=== PATIENT | female | born 1950 | race African-American/Black ===

== ENCOUNTER 2016-10-30 09:54 | Emergency (ER) | payer OTHER ==
[2016-10-30 10:22] VITALS: TEMP 97.6; BMI 29.3
[2016-10-30 10:45] LABS: BASOPHIL 1.1 % (0-2.0); EOSINOPHIL 1.5 % (0-4.5); MCH 31.3 pg (25.7-33.7); MCHC 32.5 g/dl (32.0-36.0); MEAN CELL VOLUME 96.2 fl (80-96); MEAN PLT VOLUME 8.3 fl (7.5-11.1); NEUTROPHILS 71.7 % (42.8-82.8); PLATELET COUNT 253 K/MM3 (134-434); RDW 15.8 % (11.6-15.6); WHITE BLOOD COUNT 6.8 K/mm3 (4.0-10.0)
[2016-10-30 11:08] LABS: ALBUMIN 3.7 g/dl (3.4-5.0); BILIRUBIN,TOTAL 0.4 mg/dL (0.2-1.0); COCKROFT - GAULT 11.05; CREATININE 6.1 mg/dL (0.55-1.02); MAGNESIUM 1.9 mg/dL (1.8-2.4); PHOSPHOROUS 6.5 mg/dL (2.5-4.9); TOT PROT 6.7 g/dl (6.4-8.2)
--- NOTE | 2016-10-30 11:10 | PDOC ---
History of Present Illness - General History Source: Patient Exam Limitations: No Limitations - History of Present Illness Initial Comments: 10/30/16 11:40 The patient is a 66 year old female brought via EMS, with a significant past medical history of asthma, COPD (on home O2), diabetes (neuropathy), HTN, dialysis (, , ), renal failure and chronic lower back pain, who presents to the emergency department with elevated blood pressure. She states that she has not had her medications for the past 2-3 weeks due to some complications with delivery and with her daughter picking up the medication. Pt sates when she was watching tv this morning, she felt brief episode of chest pain when someone on the movie she was watching was shot. It lasted for a few seconds and resolved. She states that she has been experiencing shortness of breath, which is mild and chronic in nature, no increased andres. She states that her daughter called the ambulance without her knowledge and was brought in after EMS noted her blood pressure to be 220/100. On presentation the patients right upper extremity is swollen compared to her left, which she notes has been swollen for the past couple of weeks. The patients last dialysis was 2 days ago. The patient denies headache and dizziness. Denies fever, chills, nausea, vomit, diarrhea and constipation. Denies dysuria, frequency, urgency and hematuria. Allergies: None Past surgical history: Cholecystectomy, right upper extremity fistula Social history: Cigarette use (10 daily). Alcohol use. No drug use reported PMD - Dr. Siva Gillis [facility] - Dr. Montes De Oca [facility] - Dr. Angelo Rodriguez <Dustin Lomeli - Last Filed: 10/30/16 15:48> <Pantera Tejeda - Last Filed: 10/30/16 17:06> - General Chief Complaint: Chest Pain Stated Complaint: Blood Pressure Problem Time Seen by Provider: 10/30/16 10:06 Past History <Dustin Lomeli - Last Filed: 10/30/16 15:48> - Past Medical History Asthma: Yes Cardiac Disorders: Yes (cardiac cath. Cardiac and respiratory arrest in 2013.) CVA: Yes (no residual) COPD: Yes Diabetes: Yes (neuropathy) Dialysis: Yes (,,) Disorders: No HTN: Yes Hypercholesterolemia: Yes Liver Disease: No Thyroid Disease: No - Surgical History Abdominal Surgery: No Appendectomy: No Cardiac Surgery: No (cardiac cath) Cholecystectomy: Yes Lung Surgery: No Neurologic Surgery: No Orthopedic Surgery: No - Psycho/Social/Smoking Cessation Hx Anxiety: No Suicidal Ideation: No Smoking History: Current every day smoker Have you smoked in the past 12 months: Yes Number of Cigarettes Smoked Daily: 5 Information on smoking cessation initiated: Yes 'Breaking Loose' booklet given: 10/30/16 Hx Alcohol Use: Yes (STOPPED 7 YRS AGO) Drug/Substance Use Hx: No Substance Use Type: Marijuana Hx Substance Use Treatment: No <Pantera Tejeda - Last Filed: 10/30/16 17:06> - Past Medical History Allergies/Adverse Reactions: Allergies Allergy/AdvReac Type Severity Reaction Status Date / Time No Known Allergies Allergy Verified 10/30/16 10:16 Home Medications: Ambulatory Orders Albuterol 0.083% Nebulizer Missy [Ventolin 0.083%] 1 neb NEB Q4H PRN 06/12/14 Hydralazine HCl 50 mg PO Q8H 06/12/14 Labetalol HCl [Normodyne -] 300 mg PO TID 06/12/14 Amlodipine Besylate 10 mg PO DAILY 10/30/16 Ergocalciferol [Drisdol -] 50,000 unit PO Q7D@1000 10/30/16 Furosemide [Lasix -] 40 mg PO DAILY 10/30/16 Labetalol HCl [Normodyne -] 200 mg PO BID 10/30/16 Metolazone 5 mg PO DAILY 10/30/16 Sevelamer Carbonate [Renvela] 2.4 gm NR DAILY 10/30/16 Simvastatin 20 mg PO DAILY 10/30/16 Tramadol HCl 50 mg PO DAILY 10/30/16 Review of Systems - Review of Systems Able to Perform ROS?: Yes Comments:: 10/30/16 11:40 CONSTITUTIONAL: No reported: Fever, Chills, Diaphoresis, Generalized Weakness, Malaise, Loss of Appetite HEENT: No reported: Rhinorrhea, Nasal Congestion, Throat Pain, Throat Swelling, Difficulty Swallowing, Mouth Swelling, Ear Pain, Eye Pain, Visual Changes CARDIOVASCULAR: reported: Chest pain, No reported: Syncope, Palpitations, Irregular Heart Rate, Lightheadedness, Peripheral Edema RESPIRATORY: Reported: Shortness of breath No reported: Cough, SOB with Exertion, Orthopnea, Wheezing, Stridor, Hemoptysis GASTROINTESTINAL: No reported: Abdominal pain, Abdominal Distension, Nausea, Vomiting, Diarrhea, Constipation, Melena, Hematochezia GENITOURINARY: No reported: Dysuria, Frequency, Urgency, Hesitancy, Flank Pain, Genital Pain MUSCULOSKELETAL: +RUE edema No reported: Myalgia, Arthralgia, Joint Swelling, Back pain, Neck Pain SKIN: No reported: Rash, Itching, Pallor HEMEATOLOGIC/IMMUNOLOGIC: No reported: Easy Bleeding, Easy Bruising, Lymphadenopathy, Frequent infections ENDOCRINE: No reported: Unexplained Weight Gain, Unexplained Weight Loss, Heat Intolerance , Cold Intolerance NEUROLOGIC: No reported: Headache, Focal Weakness, Paresthesias, Vertigo, Lightheadedness, Unsteady Gait, Seizure, Mental Status Changes, Incontinence PSYCHIATRIC: No reported: Anxiety, Depression <Dustin Lomeli - Last Filed: 10/30/16 15:48> *Physical Exam - Vital Signs Last Vital Signs Temp Pulse Resp BP Pulse Ox 97.6 F 73 26 H 163/94 96 10/30/16 10:17 10/30/16 10:25 10/30/16 10:17 10/30/16 10:17 10/30/16 10:31 - Physical Exam Comments: 10/30/16 11:41 GENERAL: The patient is awake, alert, and fully oriented, Nontoxic - in no acute distress. HEAD: Normocephalic, atraumatic. EYES: extraocular movements intact, sclera anicteric, conjunctiva clear. ENT: Normal voice, Moist mucous membranes. NECK: Normal range of motion, supple LUNGS: Breath sounds equal, clear to auscultation bilaterally. No wheezes, no rhonchi, no rales. HEART: Regular rate and rhythm, without murmur, rub or gallop. ABDOMEN: Soft, nontender, normoactive bowel sounds. No guarding, no rebound.No CVA tenderness EXTREMITIES: edeamdous, non erythemadous, non tender RUE, R fistula w/ thrill, + 1 edema b/l in LE NEUROLOGICAL: No facial assymetry, Normal speech, PSYCH: Normal mood, normal affect. SKIN: Warm, Dry, normal turgor <Dustin Lomeli - Last Filed: 10/30/16 15:48> - Vital Signs Last Vital Signs Temp Pulse Resp BP Pulse Ox 97.6 F 73 26 H 163/94 96 10/30/16 10:17 10/30/16 10:25 10/30/16 10:17 10/30/16 10:17 10/30/16 10:31 <Ileana,Pantera - Last Filed: 10/30/16 17:06> Heart Score/ECG Review - ECG Impressions Comment:: 10/30/16 11:10 Twelve-lead EKG was performed and reviewed by me. There is normal sinus rhythm with a normal rate. Rate of 73 Left ventricular hypertrophy w repolarization abnormality (unchanged from 2014) <Pantera Tejeda - Last Filed: 10/30/16 17:06> ED Treatment Course - LABORATORY CBC & Chemistry Diagram: 10/30/16 10:30 10/30/16 10:30 - ADDITIONAL ORDERS Additional order review: Laboratory Results 10/30/16 10:30 Sodium 135 L Potassium 5.0 Chloride 97 L Carbon Dioxide 26 Anion Gap 12 BUN 62 H Creatinine 6.1 H Creat Clearance w eGFR 6.93 Random Glucose 81 D Calcium 8.0 L Phosphorus 6.5 H Magnesium 1.9 Total Bilirubin 0.4 D AST 15 D ALT 21 D Alkaline Phosphatase 147 H D Creatine Kinase 333 H CK-MB (CK-2) 6.096 H Troponin I 0.06 H Total Protein 6.7 Albumin 3.7 10/30/16 10:30 RBC 3.29 L MCV 96.2 H MCHC 32.5 RDW 15.8 H MPV 8.3 D Neutrophils % 71.7 Lymphocytes % 16.3 Monocytes % 9.4 Eosinophils % 1.5 Basophils % 1.1 - RADIOLOGY Radiograph Interpretation: 10/30/16 11:36 Chest X-Ray Reviewed by: Dr. Soy Santos Impression: Cardiomegaly. No evidence of vascular congestion. Right upper extremity duplex Reviewed by: Dr. Bulmaro Villegas Impression: No evidence of deep venous thrombosis. <Dustin Lomeli - Last Filed: 10/30/16 15:48> - LABORATORY CBC & Chemistry Diagram: 10/30/16 10:30 10/30/16 10:30 - ADDITIONAL ORDERS Additional order review: 10/30/16 10:30 RBC 3.29 L MCV 96.2 H MCHC 32.5 RDW 15.8 H MPV 8.3 D Neutrophils % 71.7 Lymphocytes % 16.3 Monocytes % 9.4 Eosinophils % 1.5 Basophils % 1.1 - RADIOLOGY Radiology Studies Ordered: Category Date Time Status CHEST X-RAY PORTABLE* [RAD] Stat Radiology 10/30/16 10:22 Taken DUPLEX VASCUL US-1 ARM [US] Stat Ultrasound 10/30/16 10:22 Ordered <Pantera Tejeda - Last Filed: 10/30/16 17:06> Medical Decision Making - Medical Decision Making 10/30/16 15:48 Dr. Subhash Montes De Oca was called regarding the patient at 2:55pm Dr. Subhash Montes De Oca was consulted regarding the patient at 3:31pm [phone] <Dustin Lomeli - Last Filed: 10/30/16 15:48> - Medical Decision Making 10/30/16 11:00 66y F hx of ESRD (,,, last dialysis sat), HTN, presents with HTN, states that she has not been taking her meds for ~3 weeks due to running out of meds and some confusion about it not being delivered. She had her bp taken today and was high so her daugther called the ambulance. pt notes she had a brief episode of chest pain while watching tv lasting for less than a minute, pt also endorses some mild sob that is unchanged from baseline. pt has a RUE edema fro several weeks but denies any pain iris obtai blood work trops/ekg to screen for acs cxr to r/o effusion rue US to r/o dvt A portion of this note was documented by scribe services under my direction. I have reviewed the details of the note, within reason, and agree with the documentation with the following case summary and management plan written by me 10/30/16 17:02 pt feeling well labs reviewed trop neg x 2 ptUS neg for dvt will dc the pt with pmd fu for further management of htn return precautions were discussed I discussed the physical exam findings, ancillary test results and final diagnoses with the patient. I answered all of the patient's questions. The patient was satisfied with the care received and felt comfortable with the discharge plan and treatment plan. The patient will call their primary care physician within 24 hours to arrange follow-up and will return to the Emergency Department with any new, persistent or worsening symptoms. <Pantera Tejeda - Last Filed: 10/30/16 17:06> *DC/Admit/Observation/Transfer - Attestations Scribe Attestion: 10/30/16 11:41 Documentation prepared by Dustin Lomeli, acting as pesticide use medical coordinator for Pantera Tejeda MD <Dustin Lomeli - Last Filed: 10/30/16 15:48> - Discharge Dispostion Admit: No <Pantera Tejeda - Last Filed: 10/30/16 17:06> Diagnosis at time of Disposition: ESRD (end stage renal disease) on dialysis, Swelling of right upper extremity, Atypical chest pain Hypertension Qualifiers: Hypertension type: essential hypertension Qualified Code(s): I10 - Essential ( primary) hypertension - Discharge Dispostion Disposition: HOME Condition at time of disposition: Improved - Referrals Referrals: Siva Gillis [Primary Care Provider] - - Patient Instructions Printed Discharge Instructions: DI for Chest Pain Additional Instructions: Return to the emergency department immediately with ANY new, persistent or worsening symptoms. Please go to your dialysis tomororw. You MUST call and follow up with your doctor tomorrow for reevaluation of your blood pressure. Results were discussed with you. Please make sure your doctor reviews the results of your emergency evaluation. If you had any xrays during your visit, it was read preliminarily by myself, a Radiologist will review it and if there are any additional findings we will call you. Print Language: FINNISH
[2016-10-30 11:21] LABS: TROPONIN I 0.06 ng/ml (0.00-0.05)
--- NOTE | 2016-10-30 12:35 | EKG ---
Test Reason : Blood Pressure : / mmHG Vent. Rate : 073 BPM Atrial Rate : 073 BPM P-R Int : 230 ms QRS Dur : 092 ms QT Int : 418 ms P-R-T Axes : 040 -23 128 degrees QTc Int : 460 ms SINUS RHYTHM WITH 1ST DEGREE A-V BLOCK POSSIBLE LEFT ATRIAL ENLARGEMENT LEFT VENTRICULAR HYPERTROPHY T WAVE ABNORMALITY, CONSIDER LATERAL ISCHEMIA ABNORMAL ECG WHEN COMPARED WITH ECG OF 09-OCT-2014 15:50, T WAVE VARIATION Confirmed by FAIZA PLUMMER MD ([id number]) on 10/30/2016 12:35:20 PM Referred By: Confirmed By:FAIZA PLUMMER MD
[2016-10-30] MEDS ORDERED: hydrALAZINE HCL 50 MG TABLET (FP) PO ONE (13:09)
[2016-10-30] MEDS ORDERED: LABETALOL HCL 100 MG TABLET (FP) PO ONE (13:09)
[2016-10-30] MEDS ORDERED: LABETALOL HCL 100 MG TABLET (FP) ONE (13:17)
[2016-10-30] MEDS ORDERED: hydrALAZINE HCL 25 MG TABLET (FP) ONE (13:17)
[2016-10-30 16:25] LABS: TROPONIN I 0.05 ng/ml (0.00-0.05)
[2016-10-30 18:23] VITALS: BP 134/64; PULSE 75
== END 2016-10-30 18:32 | disposition home or self-care (01) ==
LOC: JER 09:54
DX: R07.89 Other chest pain (principal); I12.0 Hypertensive chronic kidney disease with stage 5 chronic kidney disease or end stage renal disease; E11.22 Type 2 diabetes mellitus with diabetic chronic kidney disease; N18.6 End stage renal disease; N17.8 Other acute kidney failure; Z99.2 Dependence on renal dialysis; Z79.84 Long term (current) use of oral hypoglycemic drugs; Z91.15 Patient's noncompliance with renal dialysis; E11.40 Type 2 diabetes mellitus with diabetic neuropathy, unspecified; Z98.61 Coronary angioplasty status; M54.5 Low back pain; G89.29 Other chronic pain; F17.210 Nicotine dependence, cigarettes, uncomplicated; Z86.74 Personal history of sudden cardiac arrest
CPT/HCPCS: 36415; 71010-TC; 80053; 82550; 82553; 83735; 84100; 84484; 85025; 93005; 93010; 93971; 99285-25

== ENCOUNTER 2017-11-27 08:39 | Inpatient (IN) | payer OTHER ==
--- NOTE | 2017-11-27 08:47 | PDOC ---
History of Present Illness - General Stated Complaint: SOB Time Seen by Provider: 11/27/17 08:44 - History of Present Illness Initial Comments: 11/27/17 09:45 The patient is a 67 year old female with a history of HTN, HLD, COPD on home O2 , DM, ESRD on dialysis (, , Sun) who presents for evaluation of SOB. The patient reports that she received her normal dialysis on Sunday, however began feeling increasingly SOB yesterday evening worse with lying flat prompting her presentation to the ED for further evaluation. She notes that she feels extremely tired and SOB, but otherwise denies fevers, chills, chest pain, nausea, vomiting, abdominal pain or changes with urination or bowel movements. Past History - Past Medical History Allergies/Adverse Reactions: Allergies Allergy/AdvReac Type Severity Reaction Status Date / Time gabapentin Allergy Intermediate Swelling Verified 11/27/17 08:52 Home Medications: Ambulatory Orders Albuterol 0.083% Nebulizer Missy [Ventolin 0.083%] 1 neb NEB Q4H PRN 06/12/14 Hydralazine HCl 50 mg PO Q8H 06/12/14 Amlodipine Besylate 10 mg PO DAILY 10/30/16 Furosemide [Lasix -] 40 mg PO DAILY 10/30/16 Aspirin [ASA -] 1 tab PO DAILY 10/01/17 Trazodone HCl 1 tab PO HS 10/01/17 Oxycodone HCl 5 mg PO Q12H PRN MDD 2 10/02/17 Atorvastatin Ca [Lipitor] 20 mg PO HS 10/03/17 Duloxetine HCl 30 mg PO DAILY 10/03/17 Pantoprazole Sodium [Protonix -] 20 mg PO DAILY 10/03/17 Sevelamer Carbonate [Renvela] 800 mg PO TID 10/03/17 Asthma: Yes Cardiac Disorders: Yes (cardiac cath. Cardiac and respiratory arrest in 2013.) CVA: Yes (no residual) COPD: Yes Diabetes: Yes (neuropathy) Dialysis: Yes (,,) Disorders: No HTN: Yes Hypercholesterolemia: Yes Liver Disease: No Thyroid Disease: No - Surgical History Abdominal Surgery: No Appendectomy: No Cardiac Surgery: No (cardiac cath) Cholecystectomy: Yes Lung Surgery: No Neurologic Surgery: No Orthopedic Surgery: No - Suicide/Smoking/Psychosocial Hx Smoking History: Current every day smoker Have you smoked in the past 12 months: Yes Number of Cigarettes Smoked Daily: 5 'Breaking Loose' booklet given: 10/03/17 Hx Alcohol Use: Yes (STOPPED 7 YRS AGO) Drug/Substance Use Hx: No Substance Use Type: Marijuana Hx Substance Use Treatment: No Review of Systems - Review of Systems Comments:: 11/27/17 10:04 Constitutional: Fatigue. No fevers, chills, malaise HEENT: No Rhinorrhea, nasal congestion, visual changes Cardiovascular: No chest pain, syncope, palpitations, lightheadedness Respiratory: SOB. No Cough, Hemoptysis, Gastrointestinal: No Abdominal pain, Nausea, Vomiting, Constipation, Diarrhea, Melena Genitourinary: No Dysuria, Frequency, Urgency, Hesitancy, Hematuria, Flank pain Musculoskeletal: No Myalgia, arthralgia Skin: No rashes, itching, bruising, pallor Neurologic: No Headache, Dizziness, Numbness, Weakness, or Tingling Psychiatric: No Hallucinations. No SI or HI *Physical Exam - Physical Exam Comments: 11/27/17 10:05 General Appearance: Nourished. In Severe Apparent Distress HEENT: EOMI, PORFIRIO. No Pharyngeal Erythema, Tonsillar Exudate, Tonsillar Erythema Neck: No Cervical Lymphadenopathy Respiratory/Chest: Lungs Clear, Normal Breath Sounds. Bilateral crackles noted on exam. No Rhonchi, Wheezing Cardiovascular: Regular Rhythm, Regular Rate. 3/6 Systolic Murmur noted on exam. No Gallops, Rubs Gastrointestinal/Abdominal: Normal Bowel Sounds, Soft. No Guarding, Rebound, Tenderness Musculoskeletal: No CVA Tenderness Extremity: 4+ Pitting Edema in the lower extremities bilaterally up to the abdomen. Normal Capillary Refill Integumentary: Normal Color, Dry, Warm Neurologic: Increasingly Lethargic on exam. Minimally responsive to sternal rub. Procedures - Intubation Time of Intubation: 10:20 Intubation Method: orotracheal Blade used: Mac Tube Size (Fr): 7.0 Medications: Etomidate, Rocuronium Tube position @ lip (cm): 22 Tube position confirmed by: Direct visualization, CO2 detector, Chest x-ray, Breath sounds Breath Sounds after Intubation: equal Intubation Complications: no complications Post Intubation Xray: Yes Heart Score/ECG Review #1 ECG reviewed & interpreted by me at: 10:19 (Incomplete RBBB) General ECG Interpretation: Sinus Rhythm, Normal Rate, Normal Intervals, No acute ischemic changes ED Treatment Course - LABORATORY CBC & Chemistry Diagram: 11/28/17 05:30 11/28/17 05:30 Medical Decision Making - Critical Care Time Total Critical Care Time (minutes): 60 Critical Care Statement: The care of this patient involved high complexity decision making to prevent further life threatening deterioration of the patient 's condition and/or to evaluate & treat vital organ system(s) failure or risk of failure. - Medical Decision Making 11/27/17 10:12 The patient is a 67 year old female with a history of HTN, HLD, COPD on home O2 , DM, ESRD on dialysis (Tues, Thur, Sat) who presents for evaluation of SOB. The patient became extremely lethargic during exam Saturating 54% on RA and minimally responsive to sternal rub. The patient was successfully intubated with etomidate and rocuronium and is Saturating 99% on the ventilator. Differential includes but is not limited to: CHF, COPD, Fluid overload, Infectious, Metabolic derangement. Given the patient's physical exam, it is likely her respiratory failure is due to fluid overload and hypercapnia. The patient will require ICU admission for further management. We will obtain a cbc , cmp, troponin, bnp, abg, ekg, chest plain film, blood cultures, ua, urine cultures, lactate. The patient has been treated with 80mg iv lasix, solu-medrol , continuous, duonebs, and is on a propofol drip. We discussed the case with Dr. Cornelius who accepted the patient for admission. We discussed the case with Dr. Gar who accepted the patient to the ICU. We discussed the case with Dr. Rodriguez who has been made aware of the case. We will continue to closely monitor and reassess while here in the ED. *DC/Admit/Observation/Transfer Diagnosis at time of Disposition: ESRD (end stage renal disease) on dialysis COPD (chronic obstructive pulmonary disease) Qualifiers: COPD type: unspecified COPD Qualified Code(s): J44.9 - Chronic obstructive pulmonary disease, unspecified Respiratory failure Qualifiers: Chronicity: acute Respiratory failure complication: hypoxia and hypercapnia Qualified Code(s): J96.01 - Acute respiratory failure with hypoxia - Discharge Dispostion Condition at time of disposition: Critical Decision to Admit order: Yes - Referrals - Patient Instructions - Post Discharge Activity
[2017-11-27] MEDS ORDERED: RAPID SEQUENCE INTUBATION KIT NR ONE (09:12)
[2017-11-27] MEDS ORDERED: methylPREDNISolone NA SUCC 125 MG/2 ML VIAL IVPUSH ONE (09:30)
[2017-11-27] MEDS ORDERED: FUROSEMIDE 40 MG/4 ML INJECTABLE VIAL IVPUSH ONE (09:30)
[2017-11-27] MEDS ORDERED: PROPOFOL 1,000,000 MCG/100 ML VIAL IVPB SCH ×2 (09:30→12:00)
[2017-11-27] MEDS ORDERED: ETOMIDATE 40 MG/20 ML VIAL IVPUSH ONE (09:37)
[2017-11-27] MEDS ORDERED: ROCURONIUM BROMIDE 50 MG/5 ML VIAL IVPUSH ONE (09:37)
[2017-11-27 09:44] LABS: ARTERIAL BLD GAS O2 SATURATION 98.6 % (90-98.9); ARTERIAL BLOOD GAS BASE EXCESS -3.8 meq/l (-2-2)
[2017-11-27 09:45] LABS: BASO % 0.5 % (0-2.0); EOS % 1.2 % (0-4.5); HEMATOCRIT 32.9 % (32.4-45.2); HEMOGLOBIN 10.8 GM/dL (10.7-15.3); LYMPH % 6.7 % (8-40); MCH 31.2 pg (25.7-33.7); MEAN CELL VOLUME 94.6 fl (80-96); MEAN PLT VOLUME 8.9 fl (7.5-11.1); MONO % 6.5 % (3.8-10.2); NEUT % 85.1 % (42.8-82.8); PLATELET COUNT 245 K/MM3 (134-434); RBC 3.47 M/mm3 (3.60-5.2); RDW 17.3 % (11.6-15.6); WHITE BLOOD COUNT 7.1 K/mm3 (4.0-10.0)
[2017-11-27 09:46] LABS: ALLENS TEST POSITIVE
[2017-11-27 09:47] LABS: ARTERIAL BLOOD GAS pH 7.15 (7.35-7.45)
[2017-11-27] MEDS: ALBUTEROL SO4 2.5/IPRATROPIUM 0.5 INH SOL 3 ML VIAL.NEB. NEB SCH ×6 (09:47→20:35)
[2017-11-27 09:48] LABS: ARTERIAL BLOOD GAS PCO2 76.9 mmHg (35-45)
[2017-11-27] MEDS ORDERED: methylPREDNISolone NA SUCC 125 MG/2 ML VIAL ONE (09:49)
[2017-11-27] MEDS ORDERED: FUROSEMIDE 40 MG/4 ML INJECTABLE VIAL ONE (09:49)
[2017-11-27] MEDS ORDERED: PROPOFOL 1,000,000 MCG/100 ML VIAL ONE (09:49)
[2017-11-27] MEDS ORDERED: ALBUTEROL SO4 2.5/IPRATROPIUM 0.5 INH SOL 3 ML VIAL.NEB. NEB ONE (09:49)
[2017-11-27] MEDS ORDERED: PROPOFOL 200 MG/20 ML VIAL IVPUSH ONE (09:52)
--- NOTE | 2017-11-27 09:54 | PDOC ---
Attending Attestation - Resident Resident Name: Tom Morganel - ED Attending Attestation I have performed the following: I have examined & evaluated the patient, The case was reviewed & discussed with the resident, I agree w/resident's findings & plan - HPI HPI: 11/27/17 09:51 67-year-old female history of end-stage renal disease on dialysis Sunday/ /Sunday, CHF, COPD last dialyzed on Sunday presents brought in by ambulance with increasing difficulty breathing since last night, no fevers or chills or chest pain. On arrival, patient was somnolent but arousable and giving full history. Over the course of her first 20-30 minutes, became much more somnolent and unarousable, even to painful stimuli. - Physicial Exam PE: 11/27/17 09:52 O2 sat plummets to the 50s on room air, improves to 90s on nonrebreather/BiPAP. Elevated blood pressure, afebrile, normal glucose Lethargic, minimally arousable to painful stimulus Pupils constricted bilaterally, airway patent Bilateral decreased breath sounds with crackles, expiratory wheezing, and prolonged expiration Abdomen soft Diffuse body edema - Critical Care Time Total Critical Care Time: 88 Critical Care Statement: The care of this patient involved high complexity decision making to prevent further life threatening deterioration of the patient 's condition and/or to evaluate & treat vital organ system(s) failure or risk of failure. - Medical Decision Making 11/27/17 09:53 Presents with acute left hypoxic/hypercarbic respiratory failure, likely secondary to volume overload/CHF and COPD exacerbation. Given worsening mental status, patient was intubated for airway protection and oxygenation using RSI. See resident procedure no. Chest x-ray, labs, ABG Sedation, IV steroids, nebulizers, IV Lasix ICU, will need stat dialysis Admission Heart Score/ECG Review #1 ECG reviewed & interpreted by me at: 08:54 General ECG Interpretation: Sinus Rhythm, Normal Rate (80), Normal Intervals ( QRS 100, QTC 438), No acute ischemic changes (TWI I/AVL, no peaked T waves)
[2017-11-27 10:03] LABS: INR 0.96 (0.82-1.09); PROTHROMBIN TIME (PATIENT) 10.9 SEC (9.7-13.0)
[2017-11-27 10:05] LABS: ACTIVATED PTT 30.4 SECONDS (26.9-34.4)
[2017-11-27 10:11] LABS: URINE APPEARANCE CLOUDY; URINE BILIRUBIN NEGATIVE (<2.0 mg/dL); URINE BLOOD 1+ (NEGATIVE); URINE COLOR YELLOW; URINE GLUCOSE (UA) 1+ (NEGATIVE); URINE KETONE NEGATIVE (NEGATIVE); URINE NITRITE NEGATIVE (NEGATIVE); URINE UROBILINOGEN NEGATIVE mg/dL (0.2-1.0)
[2017-11-27 10:16] LABS: URINE LEUK ESTERASE 3+ (NEGATIVE); URINE PROTEIN 2+ (NEGATIVE)
[2017-11-27 10:23] LABS: EPI CELLS RARE /HPF (FEW); URINE BACTERIA RARE /hpf (NONE SEEN); URINE HYALINE CAST 29 /lpf; URINE MUCUS RARE
[2017-11-27] MEDS ORDERED: MIDAZOLAM HCL 2 MG/2 ML SINGLE DOSE VIAL IVPUSH ONE (11:51)
[2017-11-27] MEDS: PROPOFOL 1,000,000 MCG/100 ML VIAL IVPB SCH ×2 (12:00→17:58)
--- NOTE | 2017-11-27 12:13 | EKG ---
Test Reason : Blood Pressure : / mmHG Vent. Rate : 080 BPM Atrial Rate : 080 BPM P-R Int : 228 ms QRS Dur : 100 ms QT Int : 380 ms P-R-T Axes : 047 -06 118 degrees QTc Int : 438 ms SINUS RHYTHM WITH 1ST DEGREE A-V BLOCK POSSIBLE LEFT ATRIAL ENLARGEMENT INCOMPLETE RIGHT BUNDLE BRANCH BLOCK ABNORMAL ECG Confirmed by MD HOLDEN, MARIBELL ([id number]) on 11/27/2017 12:12:58 PM Referred By: Confirmed By:MARIBELL HATCH MD
[2017-11-27] MEDS ORDERED: ALBUTEROL SO4 0.083% IH SOL 2.5 MG/3 ML VIAL.NEB. NEB PRN (12:15)
[2017-11-27 12:17] LABS: ALBUMIN 3.4 g/dl (3.4-5.0); ALK PHOS 134 U/L (45-117); ANION GAP 12 (8-16); BILIRUBIN,TOTAL 0.3 mg/dL (0.2-1.0); BLOOD UREA NITROGEN 57 mg/dL (7-18); CALCIUM 7.6 mg/dL (8.5-10.1); CHLORIDE 98 mmol/L (98-107); CO2 23 mmol/L (21-32); CREATININE 6.8 mg/dL (0.55-1.02); GLUCOSE,RANDOM 96 mg/dL (74-106); POTASSIUM 4.5 mmol/L (3.5-5.1); SGOT/AST 21 U/L (15-37); SGPT/ALT 25 U/L (12-78); SODIUM 133 mmol/L (136-145); TOT PROT 6.9 g/dl (6.4-8.2)
[2017-11-27 12:19] LABS: N-TERMINAL BNP 32826.17 pg/ml (5-125)
[2017-11-27 12:38] VITALS: BMI 33.0
[2017-11-27 13:09] LABS: ARTERIAL BLD GAS O2 SATURATION 96.7 % (90-98.9); ARTERIAL BLOOD GAS BASE EXCESS -3.1 meq/l (-2-2); ARTERIAL BLOOD GAS PO2 96.4 mmHg (80-100); ARTERIAL BLOOD GAS pH 7.24 (7.35-7.45)
[2017-11-27 13:10] LABS: ALLENS TEST POSITIVE
--- NOTE | 2017-11-27 13:48 | CONSULT ---
Consultation: CONSULT REQUEST: We have been asked to medically evaluate this patient for ( specify). HISTORY OF PRESENT ILLNESS: Unable to obtain history. Patient intubated and sedated. Patient is a 67 yo F with a PMHx of ESRD (T,T,Sat), CHF, COPD, HTN, HLD, presented to the ED with SOB and was found to be in acute hypoxic respiratory failure secondary to Fluid overload from ESRD. Patient was send to the ICU for further management. Patient was intubated in the ED. Patient with multiple previous acute respiratory failures requiring intubation and mechanical intubation. REVIEW OF SYSTEMS: unable to obtain ROS PHYSICAL EXAMINATION Vital Signs - 24 hr 11/27/17 11/27/17 11/27/17 08:44 09:00 09:05 Temperature 98.1 F Pulse Rate 82 Pulse Rate [ Apical] Respiratory 24 Rate Blood Pressure 181/79 Blood Pressure [Left Arm] O2 Sat by Pulse 80 L 98 97 Oximetry (%) 11/27/17 11/27/17 11/27/17 09:16 09:20 09:41 Temperature Pulse Rate Pulse Rate [ 92 H Apical] Respiratory 14 14 Rate Blood Pressure Blood Pressure 185/77 [Left Arm] O2 Sat by Pulse 100 Oximetry (%) 11/27/17 11/27/17 11/27/17 09:50 10:05 11:00 Temperature Pulse Rate Pulse Rate [ 83 75 62 Apical] Respiratory 14 14 14 Rate Blood Pressure Blood Pressure 189/93 161/94 143/69 [Left Arm] O2 Sat by Pulse 100 100 100 Oximetry (%) 11/27/17 11/27/17 12:00 12:04 Temperature 97.6 F 97.6 F Pulse Rate 66 66 Pulse Rate [ Apical] Respiratory 20 20 Rate Blood Pressure 128/64 128/64 Blood Pressure [Left Arm] O2 Sat by Pulse 100 100 Oximetry (%) GENERAL: intubated, sedated EYES: pupils minimially reactive to light. proptosis EARS, NOSE, THROAT:oropharynx clear without exudates. Moist mucous membranes. NECK: supple without lymphadenopathy, JVD,. LUNGS: basilar crackles HEART: Regular rate and rhythm, normal S1 and S2 without murmur, rub or gallop. ABDOMEN: obese, no grimacing to palpation. UPPER EXTREMITIES: 2+ pulses, R AVF fistula, +auscultation of bruit and positive palpation of thrill LOWER EXTREMITIES: 2+ pulses, 2+ Edema b/l NEUROLOGICAL: unable to assess Laboratory Results - last 24 hr 11/27/17 11/27/17 11/27/17 09:11 09:30 09:30 WBC 7.1 RBC 3.47 L Hgb 10.8 Hct 32.9 MCV 94.6 MCH 31.2 MCHC 33.0 RDW 17.3 H Plt Count 245 MPV 8.9 Absolute Neuts (auto) 6.0 Neutrophils % 85.1 H Lymphocytes % 6.7 L D Monocytes % 6.5 Eosinophils % 1.2 Basophils % 0.5 Nucleated RBC % 0 PT with INR INR PTT (Actin FS) Anticoagulation Therapy Puncture Site ABG pH ABG pCO2 at Pt Temp ABG pO2 at Pt Temp ABG HCO3 ABG O2 Sat (Measured) ABG O2 Content ABG Base Excess Kei Test Carboxyhemoglobin Methemoglobin O2 Delivery Device Oxygen Flow Rate Vent Mode Vent Rate Mechanical Rate PEEP Pressure Support Vent Sodium Cancelled Potassium Cancelled Chloride Cancelled Carbon Dioxide Cancelled Anion Gap Cancelled BUN Cancelled Creatinine Cancelled Creat Clearance w eGFR Cancelled POC Glucometer [id number] Random Glucose Cancelled Lactic Acid Calcium Cancelled Total Bilirubin Cancelled AST Cancelled ALT Cancelled Alkaline Phosphatase Cancelled Creatine Kinase Cancelled Creatine Kinase Index CK-MB (CK-2) Troponin I Cancelled B-Natriuretic Peptide Cancelled Total Protein Cancelled Albumin Cancelled Urine Color Urine Appearance Urine pH Ur Specific [place] Urine Protein Urine Glucose (UA) Urine Ketones Urine Blood Urine Nitrite Urine Bilirubin Urine Urobilinogen Ur Leukocyte Esterase Urine WBC (Auto) Urine RBC (Auto) Ur Epithelial Cells Urine Bacteria Hyaline Casts Urine Mucus 11/27/17 11/27/17 11/27/17 09:30 09:30 09:30 WBC RBC Hgb Hct MCV MCH MCHC RDW Plt Count MPV Absolute Neuts (auto) Neutrophils % Lymphocytes % Monocytes % Eosinophils % Basophils % Nucleated RBC % PT with INR 10.90 INR 0.96 PTT (Actin FS) 30.4 Anticoagulation Therapy No Result Required. Puncture Site No Result Required. ABG pH 7.15 L* ABG pCO2 at Pt Temp 76.9 H* ABG pO2 at Pt Temp 150.0 H ABG HCO3 25.9 ABG O2 Sat (Measured) 98.6 ABG O2 Content 14.1 L ABG Base Excess -3.8 L Kei Test Positive Carboxyhemoglobin 5.0 H Methemoglobin 1.5 O2 Delivery Device No Result Required. Oxygen Flow Rate No Result Required. Vent Mode No Result Required. Vent Rate No Result Required. Mechanical Rate No Result Required. PEEP Pressure Support Vent No Result Required. Sodium 133 L Potassium 4.5 Chloride 98 Carbon Dioxide 23 Anion Gap 12 BUN 57 H Creatinine 6.8 H Creat Clearance w eGFR 6.09 POC Glucometer Random Glucose 96 Lactic Acid Calcium 7.6 L Total Bilirubin 0.3 D AST 21 ALT 25 Alkaline Phosphatase 134 H Creatine Kinase 183 Creatine Kinase Index 2.4 CK-MB (CK-2) 4.54 H Troponin I 0.04 B-Natriuretic Peptide 61988.17 H Total Protein 6.9 Albumin 3.4 Urine Color Urine Appearance Urine pH Ur Specific [place] Urine Protein Urine Glucose (UA) Urine Ketones Urine Blood Urine Nitrite Urine Bilirubin Urine Urobilinogen Ur Leukocyte Esterase Urine WBC (Auto) Urine RBC (Auto) Ur Epithelial Cells Urine Bacteria Hyaline Casts Urine Mucus 11/27/17 11/27/17 11/27/17 09:30 09:42 12:59 WBC RBC Hgb Hct MCV MCH MCHC RDW Plt Count MPV Absolute Neuts (auto) Neutrophils % Lymphocytes % Monocytes % Eosinophils % Basophils % Nucleated RBC % PT with INR INR PTT (Actin FS) Anticoagulation Therapy Puncture Site Left radial ABG pH 7.24 L* ABG pCO2 at Pt Temp 58.0 H D ABG pO2 at Pt Temp 96.4 D ABG HCO3 24.2 ABG O2 Sat (Measured) 96.7 ABG O2 Content 13.4 L ABG Base Excess -3.1 L Kei Test Positive Carboxyhemoglobin Methemoglobin O2 Delivery Device Oxygen Flow Rate 100% Vent Mode Vent Rate 20 Mechanical Rate PEEP 5.0 Pressure Support Vent 400 Sodium Potassium Chloride Carbon Dioxide Anion Gap BUN Creatinine Creat Clearance w eGFR POC Glucometer Random Glucose Lactic Acid 0.5 Calcium Total Bilirubin AST ALT Alkaline Phosphatase Creatine Kinase Creatine Kinase Index CK-MB (CK-2) Troponin I B-Natriuretic Peptide Total Protein Albumin Urine Color Yellow Urine Appearance Cloudy Urine pH 5.0 Ur Specific [place] 1.012 Urine Protein 2+ H Urine Glucose (UA) 1+ H Urine Ketones Negative Urine Blood 1+ H Urine Nitrite Negative Urine Bilirubin Negative Urine Urobilinogen Negative Ur Leukocyte Esterase 3+ H Urine WBC (Auto) 123 Urine RBC (Auto) 4 Ur Epithelial Cells Rare Urine Bacteria Rare Hyaline Casts 29 Urine Mucus Rare Active Medications Generic Name Dose Route Start Last Admin Trade Name Freq PRN Reason Stop Dose Admin Albuterol Sulfate 1 amp 11/27/17 12:15 Ventolin 0.083% Nebulizer Soln - NEB Q4H PRN SHORT OF BREATH/WHEEZING Albuterol/Ipratropium 1 amp 11/27/17 16:00 Duoneb - NEB RQID SHAMEKA Heparin Sodium (Porcine) 5,000 unit 11/27/17 14:00 Heparin - SQ TID SHAMEKA Propofol 1,000,000 mcg in 100 mls @ 2.699 mls/hr 11/27/17 13:00 11/27/17 12: 05 Diprivan - IVPB 40 mcg/kg/min TITR SHAMEKA 21.595 mls/hr Titration Protocol 5 MCG/KG/MIN ASSESSMENT/PLAN: Patient is a 67 yo F with a PMHx of ESRD (T,T,Sat), CHF, COPD, HTN, HLD, presented to the ED with SOB and was found to be in acute hypoxic respiratory failure secondary to Fluid overload from ESRD. #Neuro -intubated and sedated /5 -Propofol #PULM -volume overloaded 2/2 ESRD -Intubated, sedated -1x Lasix in ED 80mg -Medrol 125mg 1x -Duonebs QID -Albuterol PRN -strict I/o -daily weights #Nephro -ESRD -Nephro consulted: Dr. Cullen -Plan for dialysis today for volume removal. Last HD sunday. -FU nephro reccs -urine tox for history of drug use #CV -monitor BP -med rec #FEN -no iv fluids -monitor lytes -NPO #DVT -hep sq Dispo: We will continue to follow the patient. Thank you for this consultative opportunity. Visit type - Emergency Visit Emergency Visit: Yes ED Registration Date: 11/27/17 Care time: The patient presented to the Emergency Department on the above date and was hospitalized for further evaluation of their emergent condition. - New Patient This patient is new to me today: Yes Date on this admission: 11/27/17 - Critical Care Critical Care patient: Yes Total Critical Care Time (in minutes): 40 Critical Care Statement: The care of this patient involved high complexity decision making to prevent further life threatening deterioration of the patient 's condition and/or to evaluate & treat vital organ system(s) failure or risk of failure.
[2017-11-27] MEDS: HEPARIN NA (PORCINE) 5,000 UNITS/ML 1ML VIAL SQ SCH (14:37)
--- NOTE | 2017-11-27 14:44 | HP ---
Admitting History and Physical - Primary Care Physician PCP: Dee Cornelius - Admission Chief Complaint: DYSPNEA ACUTE FLUID OVERLOAD History of Present Illness: 67 Y/O FEMALE HISTORY ESRD ON HD HERE WITH SOB AND FLUID OVERLOAD. PATIENT HAS LONG HISTORY OF ESRD ON HD DEVELOPING FLUID OVERLOAD WITH MULTIPLE INTUBATIONS FOR FLUID OVERLOAD. 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 History of Recent Travel: No Home Medications - Allergies Allergies/Adverse Reactions: Allergies Allergy/AdvReac Type Severity Reaction Status Date / Time gabapentin Allergy Intermediate Swelling Verified 11/27/17 08:52 - Home Medications Home Medications: Ambulatory Orders Albuterol 0.083% Nebulizer Missy [Ventolin 0.083%] 1 neb NEB Q4H PRN 06/12/14 Hydralazine HCl 50 mg PO Q8H 06/12/14 Amlodipine Besylate 10 mg PO DAILY 10/30/16 Furosemide [Lasix -] 40 mg PO DAILY 10/30/16 Aspirin [ASA -] 1 tab PO DAILY 10/01/17 Trazodone HCl 1 tab PO HS 10/01/17 Oxycodone HCl 5 mg PO Q12H PRN MDD 2 10/02/17 Atorvastatin Ca [Lipitor] 20 mg PO HS 10/03/17 Duloxetine HCl 30 mg PO DAILY 10/03/17 Pantoprazole Sodium [Protonix -] 20 mg PO DAILY 10/03/17 Sevelamer Carbonate [Renvela] 800 mg PO TID 10/03/17 Review of Systems - Review of Systems Constitutional: reports: Weakness Eyes: reports: No Symptoms HENT: reports: No Symptoms Neck: reports: No Symptoms Cardiovascular: reports: Shortness of Breath Respiratory: reports: SOB Gastrointestinal: reports: No Symptoms Genitourinary: reports: No Symptoms Musculoskeletal: reports: No Symptoms Integumentary: reports: No Symptoms Neurological: reports: Other Endocrine: reports: No Symptoms Physical Examination Vital Signs: Vital Signs Temperature 97.5 F L 11/27/17 14:00 Pulse Rate 57 L 11/27/17 14:00 Respiratory Rate 19 11/27/17 14:00 Blood Pressure 172/87 11/27/17 14:00 O2 Sat by Pulse Oximetry (%) 100 11/27/17 12:04 Constitutional: Yes: Severe Distress Eyes: Yes: WNL HENT: Yes: WNL Neck: Yes: WNL Cardiovascular: Yes: Tachycardia Respiratory: Yes: Mechanically Ventilated, Orthopnea, SOB, SOB on Exertion Gastrointestinal: Yes: WNL Renal/: Yes: WNL Musculoskeletal: Yes: Muscle Weakness Extremities: Yes: WNL Edema: Yes Peripheral Pulses WNL: Yes Integumentary: Yes: WNL Wound/Incision: Yes: Other Neurological: Yes: Pre-Existing Deficit ...Motor Strength: LLE, RLE Psychiatric: Yes: Other Labs: CBC, BMP 11/27/17 09:30 11/27/17 09:30 Problem List - Problems (1) COPD (chronic obstructive pulmonary disease) Code(s): J44.9 - CHRONIC OBSTRUCTIVE PULMONARY DISEASE, UNSPECIFIED Qualifiers: COPD type: unspecified COPD Qualified Code(s): J44.9 - Chronic obstructive pulmonary disease, unspecified (2) ESRD (end stage renal disease) on dialysis Code(s): N18.6 - END STAGE RENAL DISEASE; Z99.2 - DEPENDENCE ON RENAL DIALYSIS (3) Respiratory failure Code(s): J96.90 - RESPIRATORY FAILURE, UNSP, UNSP W HYPOXIA OR HYPERCAPNIA Qualifiers: Chronicity: acute Respiratory failure complication: hypoxia and hypercapnia Qualified Code(s): J96.01 - Acute respiratory failure with hypoxia ; J96.02 - Acute respiratory failure with hypercapnia (4) Atypical chest pain Code(s): R07.89 - OTHER CHEST PAIN (5) Cardiac murmur Code(s): R01.1 - CARDIAC MURMUR, UNSPECIFIED (6) Diabetes mellitus Code(s): E11.9 - TYPE 2 DIABETES MELLITUS WITHOUT COMPLICATIONS Qualifiers: Diabetes mellitus complication detail: with chronic kidney disease Qualified Code(s): E11.22 - Type 2 diabetes mellitus with diabetic chronic kidney disease (7) Dialysis AV fistula malfunction Code(s): T82.590A - [facility] COMPL OF SURGICALLY CREATED ARTERIOVENOUS FISTULA, INIT (8) Hypertension Code(s): I10 - ESSENTIAL (PRIMARY) HYPERTENSION Qualifiers: Hypertension type: essential hypertension Qualified Code(s): I10 - Essential (primary) hypertension (9) Smoker Code(s): F17.200 - NICOTINE DEPENDENCE, UNSPECIFIED, UNCOMPLICATED Assessment/Plan HD PER NEPHROLOGY 02 SUPPORT WEAN OFF VENT TOLERATED DVT PROPHYLAXIS STEROIDS IV PULMONARY AND NEPHROLOGY EVAL
--- NOTE | 2017-11-27 15:01 | PN ---
Teaching Attending Note Name of Resident: Magalys Sears ATTENDING PHYSICIAN STATEMENT I saw and evaluated the patient. I reviewed the resident's note and discussed the case with the resident. I agree with the resident's findings and plan as documented. SUBJECTIVE: 67 F, well known to our service from multiple admissions at [facility]. HTN, HPL, COPD on home O2, DM, ESRD on dialysis (Tues, Thur, Sat), and multiple previous acute respiratory failures requiring intubation and mechanical intubation. Apparently received HD on Sunday. Experienced progressive orthopnea and SOB x 1. Was in extremis in ED requiring endotracheal intubation and mechanical ventilation. CXR: Gross cardiomegaly (old) / CHF pattern Intake & Output 11/24/17 11/25/17 11/26/17 11/27/17 23:59 23:59 23:59 23:59 Output Total 30 Balance -30 Weight 198 lb 6 oz Last Vital Signs Temp Pulse Resp BP Pulse Ox 97.5 F L 57 L 19 172/87 100 11/27/17 14:00 11/27/17 14:00 11/27/17 14:00 11/27/17 14:00 11/27/17 12:04 Active Medications Albuterol Sulfate (Ventolin 0.083% Nebulizer Soln -) 1 amp NEB Q4H PRN PRN Reason: SHORT OF BREATH/WHEEZING Albuterol/Ipratropium (Duoneb -) 1 amp NEB RQID SHAMEKA Heparin Sodium (Porcine) (Heparin -) 5,000 unit SQ TID [facility] Last Admin: 11/27/17 14:37 Dose: 5,000 unit Propofol (Diprivan -) 1,000,000 mcg in 100 mls @ 2.699 mls/hr IVPB TITR SHAMEKA; Protocol Last Titration: 11/27/17 12:05 Dose: 40 mcg/kg/min, 21.595 mls/hr GENERAL: intubated, sedated EYES: pupils equal, proptosis EARS, NOSE, THROAT: oropharynx clear without exudates. Moist mucous membranes. NECK: supple without lymphadenopathy, JVD,. LUNGS: basilar rales HEART: Regular rate and rhythm, normal S1 and S2 without murmur, rub or gallop. ABDOMEN: obese, no grimacing to palpation. UPPER EXTREMITIES: 2+ pulses, R AVF fistula, +auscultation of bruit and positive palpation of thrill LOWER EXTREMITIES: 2+ pulses, 2+ Edema b/l NEUROLOGICAL: sedated Laboratory Results - last 24 hr 11/27/17 11/27/17 11/27/17 09:11 09:30 09:30 WBC 7.1 RBC 3.47 L Hgb 10.8 Hct 32.9 MCV 94.6 MCH 31.2 MCHC 33.0 RDW 17.3 H Plt Count 245 MPV 8.9 Absolute Neuts (auto) 6.0 Neutrophils % 85.1 H Lymphocytes % 6.7 L D Monocytes % 6.5 Eosinophils % 1.2 Basophils % 0.5 Nucleated RBC % 0 PT with INR INR PTT (Actin FS) Anticoagulation Therapy Puncture Site ABG pH ABG pCO2 at Pt Temp ABG pO2 at Pt Temp ABG HCO3 ABG O2 Sat (Measured) ABG O2 Content ABG Base Excess Kei Test Carboxyhemoglobin Methemoglobin O2 Delivery Device Oxygen Flow Rate Vent Mode Vent Rate Mechanical Rate PEEP Pressure Support Vent Sodium Cancelled Potassium Cancelled Chloride Cancelled Carbon Dioxide Cancelled Anion Gap Cancelled BUN Cancelled Creatinine Cancelled Creat Clearance w eGFR Cancelled POC Glucometer 130.46022 Random Glucose Cancelled Lactic Acid Calcium Cancelled Total Bilirubin Cancelled AST Cancelled ALT Cancelled Alkaline Phosphatase Cancelled Creatine Kinase Cancelled Creatine Kinase Index CK-MB (CK-2) Troponin I Cancelled B-Natriuretic Peptide Cancelled Total Protein Cancelled Albumin Cancelled Urine Color Urine Appearance Urine pH Ur Specific [place] Urine Protein Urine Glucose (UA) Urine Ketones Urine Blood Urine Nitrite Urine Bilirubin Urine Urobilinogen Ur Leukocyte Esterase Urine WBC (Auto) Urine RBC (Auto) Ur Epithelial Cells Urine Bacteria Hyaline Casts Urine Mucus 11/27/17 11/27/17 11/27/17 09:30 09:30 09:30 WBC RBC Hgb Hct MCV MCH MCHC RDW Plt Count MPV Absolute Neuts (auto) Neutrophils % Lymphocytes % Monocytes % Eosinophils % Basophils % Nucleated RBC % PT with INR 10.90 INR 0.96 PTT (Actin FS) 30.4 Anticoagulation Therapy No Result Required. Puncture Site No Result Required. ABG pH 7.15 L* ABG pCO2 at Pt Temp 76.9 H* ABG pO2 at Pt Temp 150.0 H ABG HCO3 25.9 ABG O2 Sat (Measured) 98.6 ABG O2 Content 14.1 L ABG Base Excess -3.8 L Kei Test Positive Carboxyhemoglobin 5.0 H Methemoglobin 1.5 O2 Delivery Device No Result Required. Oxygen Flow Rate No Result Required. Vent Mode No Result Required. Vent Rate No Result Required. Mechanical Rate No Result Required. PEEP Pressure Support Vent No Result Required. Sodium 133 L Potassium 4.5 Chloride 98 Carbon Dioxide 23 Anion Gap 12 BUN 57 H Creatinine 6.8 H Creat Clearance w eGFR 6.09 POC Glucometer Random Glucose 96 Lactic Acid Calcium 7.6 L Total Bilirubin 0.3 D AST 21 ALT 25 Alkaline Phosphatase 134 H Creatine Kinase 183 Creatine Kinase Index 2.4 CK-MB (CK-2) 4.54 H Troponin I 0.04 B-Natriuretic Peptide 35428.17 H Total Protein 6.9 Albumin 3.4 Urine Color Urine Appearance Urine pH Ur Specific [place] Urine Protein Urine Glucose (UA) Urine Ketones Urine Blood Urine Nitrite Urine Bilirubin Urine Urobilinogen Ur Leukocyte Esterase Urine WBC (Auto) Urine RBC (Auto) Ur Epithelial Cells Urine Bacteria Hyaline Casts Urine Mucus 11/27/17 11/27/17 11/27/17 09:30 09:42 12:59 WBC RBC Hgb Hct MCV MCH MCHC RDW Plt Count MPV Absolute Neuts (auto) Neutrophils % Lymphocytes % Monocytes % Eosinophils % Basophils % Nucleated RBC % PT with INR INR PTT (Actin FS) Anticoagulation Therapy Puncture Site Left radial ABG pH 7.24 L* ABG pCO2 at Pt Temp 58.0 H D ABG pO2 at Pt Temp 96.4 D ABG HCO3 24.2 ABG O2 Sat (Measured) 96.7 ABG O2 Content 13.4 L ABG Base Excess -3.1 L Kei Test Positive Carboxyhemoglobin Methemoglobin O2 Delivery Device Oxygen Flow Rate 100% Vent Mode Vent Rate 20 Mechanical Rate PEEP 5.0 Pressure Support Vent 400 Sodium Potassium Chloride Carbon Dioxide Anion Gap BUN Creatinine Creat Clearance w eGFR POC Glucometer Random Glucose Lactic Acid 0.5 Calcium Total Bilirubin AST ALT Alkaline Phosphatase Creatine Kinase Creatine Kinase Index CK-MB (CK-2) Troponin I B-Natriuretic Peptide Total Protein Albumin Urine Color Yellow Urine Appearance Cloudy Urine pH 5.0 Ur Specific [place] 1.012 Urine Protein 2+ H Urine Glucose (UA) 1+ H Urine Ketones Negative Urine Blood 1+ H Urine Nitrite Negative Urine Bilirubin Negative Urine Urobilinogen Negative Ur Leukocyte Esterase 3+ H Urine WBC (Auto) 123 Urine RBC (Auto) 4 Ur Epithelial Cells Rare Urine Bacteria Rare Hyaline Casts 29 Urine Mucus Rare IMP: Acute Respiratory Failure likely due to Volume Overload R/O AE of COPD (low suspicion at this time) ESRD on HD (TTS) HTN HPL COPD on home O2 PLAN: HD for volume removal Vent settings were adjusted: Follow ABG Check toxicology AC Mode of vent Follow CXR BD TX Monitor off systemic steroids for now Monitor off ABX Wean trials once volume status improved Dr Gar Critical care time spent in reviewing chart, evaluating patient and formulating plan - 36 minutes.
[2017-11-27] MEDS ORDERED: ACETAMINOPHEN 650 MG SUPP.RECT PR PRN (15:29)
[2017-11-27] MEDS: PANTOPRAZOLE SODIUM 40 MG VIAL IVPUSH SCH (15:38)
[2017-11-27] MEDS ORDERED: SODIUM CHLORIDE 250 ML IV PRN (15:53)
--- NOTE | 2017-11-27 15:53 | CONSULT ---
Consult Consult Specialty:: NAphrology Reason for Consultation:: ESRD - History of Present Illness Chief Complaint: shortness of breath History of Present Illness: Pt is a 67 year old female with pmhx of ESRD, COPD, HLD, multi drug abuse, and HTN who presents to the ER with shortness of breath. Her shortness of breath has been getting worse. She was intubated in the ER. I was called to evaluat her as she is on HD. Her last dialysis session was on Sunday. I discussed her care with her primary electroplater helper. She has history of non compliance with fluid intake. She has been intubated in the past for fluid overload. She is unable to give history at the moment as she is intubated. She does appears volume overloaded. 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 History of Recent Travel: No Home Medications - Allergies Allergies/Adverse Reactions: Allergies Allergy/AdvReac Type Severity Reaction Status Date / Time gabapentin Allergy Intermediate Swelling Verified 11/27/17 08:52 - Home Medications Home Medications: Ambulatory Orders Albuterol 0.083% Nebulizer Missy [Ventolin 0.083%] 1 neb NEB Q4H PRN 06/12/14 RX: Hydralazine HCl 50 mg PO Q8H 06/12/14 Furosemide [Lasix -] 40 mg PO DAILY 10/30/16 RX: Amlodipine Besylate 10 mg PO DAILY 10/30/16 Aspirin [ASA -] 1 tab PO DAILY 10/01/17 RX: Trazodone HCl 1 tab PO HS 10/01/17 RX: Oxycodone HCl 5 mg PO Q12H PRN MDD 2 10/02/17 Atorvastatin Ca [Lipitor] 20 mg PO HS 10/03/17 Pantoprazole Sodium [Protonix -] 20 mg PO DAILY 10/03/17 RX: Duloxetine HCl 30 mg PO DAILY 10/03/17 Sevelamer Carbonate [Renvela] 800 mg PO TID 10/03/17 Family Disease History - Family Disease History Family History: Unable to Obtain Review of Systems Unable to obtain ROS, reason: pt intubated Physical Exam Vital Signs: Vital Signs Temperature 97.5 F L 11/27/17 14:00 Pulse Rate 57 L 11/27/17 14:00 Respiratory Rate 19 11/27/17 14:00 Blood Pressure 172/87 11/27/17 14:00 O2 Sat by Pulse Oximetry (%) 100 11/27/17 12:04 Constitutional: Yes: Calm Eyes: Yes: Conjunctiva Clear HENT: Yes: Atraumatic Cardiovascular: Yes: S1, S2 Respiratory: Yes: Mechanically Ventilated Gastrointestinal: Yes: Soft Renal/: Yes: Yeh Present Musculoskeletal: Yes: Muscle Weakness Edema: Yes Edema: LLE: 2+, RLE: 2+ Integumentary: Yes: WNL Neurological: Yes: Lethargy Labs: CBC, BMP 11/27/17 09:30 11/27/17 09:30 Laboratory Tests 11/27/17 11/27/17 11/27/17 09:30 09:30 09:30 Hgb 10.8 ABG pH 7.15 L* ABG pCO2 at Pt Temp 76.9 H* Sodium 133 L Potassium 4.5 BUN 57 H Creatinine 6.8 H 11/27/17 12:59 Hgb ABG pH 7.24 L* ABG pCO2 at Pt Temp 58.0 H D Sodium Potassium BUN Creatinine Imaging - Results Chest X-ray: Report Reviewed Problem List - Problems (1) COPD (chronic obstructive pulmonary disease) Code(s): J44.9 - CHRONIC OBSTRUCTIVE PULMONARY DISEASE, UNSPECIFIED Qualifiers: COPD type: unspecified COPD Qualified Code(s): J44.9 - Chronic obstructive pulmonary disease, unspecified (2) ESRD (end stage renal disease) on dialysis Code(s): N18.6 - END STAGE RENAL DISEASE; Z99.2 - DEPENDENCE ON RENAL DIALYSIS (3) Respiratory failure Code(s): J96.90 - RESPIRATORY FAILURE, UNSP, UNSP W HYPOXIA OR HYPERCAPNIA Qualifiers: Chronicity: acute Respiratory failure complication: hypoxia and hypercapnia Qualified Code(s): J96.01 - Acute respiratory failure with hypoxia ; J96.02 - Acute respiratory failure with hypercapnia Assessment/Plan Current Medications Generic Name Dose Route Start Last Admin Trade Name Freq PRN Reason Stop Dose Admin Acetaminophen 650 mg 11/27/17 15:29 Tylenol Suppository - NM Q6H PRN FEVER Albuterol Sulfate 1 amp 11/27/17 12:15 Ventolin 0.083% Nebulizer Soln - NEB Q4H PRN SHORT OF BREATH/WHEEZING Albuterol/Ipratropium 1 amp 11/27/17 16:00 Duoneb - NEB RQID SHAMEKA Heparin Sodium (Porcine) 5,000 unit 11/27/17 14:00 11/27/17 14:37 Heparin - SQ 5,000 unit TID [facility]KA Administration Propofol 1,000,000 mcg in 100 mls @ 2.699 mls/hr 11/27/17 13:00 11/27/17 12: 05 Diprivan - IVPB 40 mcg/kg/min TITR SH[facility]KA 21.595 mls/hr Titration Protocol 5 MCG/KG/MIN Pantoprazole Sodium 40 mg 11/27/17 15:30 11/27/17 15:38 Protonix Iv IVPUSH 40 mg DAILY [facility] Administration Impression 1. ESRD 2. fluid overload 3. acute resp failure requiring intubation 4. HTN 5. COPD 6. hx of multi drug use 7. HLD Plan - will arrange for urgent HD today at bedside on ICU - will UF volume - monitor blood pressure - ICU care - vent support - repeat cxr in am - weaning per pulmonary - may need to be dialyzed again tomorrow - monitor urine output, may attempt lasix as well if she is putting out a significant amount of urine - will need to re-evaluate dialysis dry weight and discuss compliance once she is more stable - discussed with ICU Dr Cullen
[2017-11-27 16:20] LABS: URINE AMPHETAMINES NEGATIVE ng/ml (CUTOFF=500); URINE BARBITURATES NEGATIVE ng/ml (CUTOFF=200)
[2017-11-27 16:21] LABS: COCAINE, UR NEGATIVE ng/ml (CUTOFF=300); METHADONE, UR NEGATIVE ng/ml (CUTOFF=300); OPIATES, URI NEGATIVE ng/ml (CUTOFF=300); PHENCYCLIDINE,URINE NEGATIVE ng/ml (CUTOFF=25); URINE BENZODIAZEPINES NEGATIVE ng/ml (CUTOFF=200)
[2017-11-28] MEDS: PROPOFOL 1,000,000 MCG/100 ML VIAL IVPB SCH ×2 (00:21→09:31)
[2017-11-28] MEDS: HEPARIN NA (PORCINE) 5,000 UNITS/ML 1ML VIAL SQ SCH ×4 (00:21→21:46)
[2017-11-28 00:39] LABS: ARTERIAL BLD GAS O2 SATURATION 99.3 % (90-98.9); ARTERIAL BLOOD GAS BASE EXCESS 4.2 meq/l (-2-2); ARTERIAL BLOOD GAS PCO2 40.8 mmHg (35-45); ARTERIAL BLOOD GAS pH 7.45 (7.35-7.45)
[2017-11-28 06:22] LABS: HEMATOCRIT 28.6 % (32.4-45.2); HEMOGLOBIN 9.8 GM/dL (10.7-15.3); MCH 31.2 pg (25.7-33.7); MCHC 34.1 g/dl (32.0-36.0); MEAN CELL VOLUME 91.5 fl (80-96); MEAN PLT VOLUME 8.5 fl (7.5-11.1); PLATELET COUNT 221 K/MM3 (134-434); RBC 3.12 M/mm3 (3.60-5.2); RDW 17.1 % (11.6-15.6); WHITE BLOOD COUNT 4.8 K/mm3 (4.0-10.0)
[2017-11-28 06:48] LABS: ALBUMIN 2.7 g/dl (3.4-5.0); ANION GAP 7 (8-16); BLOOD UREA NITROGEN 33 mg/dL (7-18); CALCIUM 7.7 mg/dL (8.5-10.1); CHLORIDE 99 mmol/L (98-107); CO2 29 mmol/L (21-32); GLUCOSE,RANDOM 82 mg/dL (74-106); MAGNESIUM 1.8 mg/dL (1.8-2.4); POTASSIUM 4.2 mmol/L (3.5-5.1); SODIUM 135 mmol/L (136-145)
[2017-11-28 07:04] LABS: ALK PHOS 102 U/L (45-117); BILIRUBIN,TOTAL 0.3 mg/dL (0.2-1.0); CREATININE 4.5 mg/dL (0.55-1.02); PHOSPHOROUS 3.5 mg/dL (2.5-4.9); SGOT/AST 12 U/L (15-37); SGPT/ALT 18 U/L (12-78); TOT PROT 5.4 g/dl (6.4-8.2)
[2017-11-28] MEDS ORDERED: PT OWN MED DRAWER 7, Y5N ONE (07:55)
[2017-11-28] MEDS: ALBUTEROL SO4 2.5/IPRATROPIUM 0.5 INH SOL 3 ML VIAL.NEB. NEB SCH ×4 (08:00→20:30)
[2017-11-28] MEDS ORDERED: hydrALAZINE HCL 20 MG/ML VIAL IVPUSH PRN ×2 (08:17→16:49)
[2017-11-28] MEDS: PANTOPRAZOLE SODIUM 40 MG VIAL IVPUSH SCH (09:31)
--- NOTE | 2017-11-28 09:51 | PN ---
Progress Note, Physician History of Present Illness: 67-year-old female history of end-stage renal disease on dialysis Sunday/ /Sunday, CHF, COPD last dialyzed on Sunday presents brought in by ambulance with increasing difficulty breathing since last night, no fevers or chills or chest pain. Pt was intubated in ED now in ICU sedated - Current Medication List Current Medications: Active Medications Acetaminophen (Tylenol Suppository -) 650 mg IA Q6H PRN PRN Reason: FEVER Albuterol Sulfate (Ventolin 0.083% Nebulizer Soln -) 1 amp NEB Q4H PRN PRN Reason: SHORT OF BREATH/WHEEZING Albuterol/Ipratropium (Duoneb -) 1 amp NEB RQID [facility] Last Admin: 11/27/17 20:35 Dose: 1 amp Heparin Sodium (Porcine) (Heparin -) 5,000 unit SQ TID [facility] Last Admin: 11/28/17 06:31 Dose: 5,000 unit Hydralazine HCl (Apresoline Injection -) 10 mg IVPUSH Q6H PRN PRN Reason: HYPERTENSION Propofol (Diprivan -) 1,000,000 mcg in 100 mls @ 2.699 mls/hr IVPB TITR [facility]; Protocol Last Admin: 11/28/17 09:31 Dose: 40 mcg/kg/min, 21.595 mls/hr Sodium Chloride (Normal Saline -) 250 mls @ 3,000 mls/hr IV PRN PRN PRN Reason: Hypotension during Dialysis Stop: 11/28/17 15:53 Pantoprazole Sodium (Protonix Iv) 40 mg IVPUSH DAILY [facility] Last Admin: 11/28/17 09:31 Dose: 40 mg - Objective Vital Signs: Vital Signs Temperature 97.2 F L 11/28/17 02:00 Pulse Rate 64 11/28/17 08:00 Respiratory Rate 18 11/28/17 08:00 Blood Pressure 163/86 11/28/17 08:00 O2 Sat by Pulse Oximetry (%) 100 11/27/17 12:04 Cardiovascular: Yes: S1, S2 Respiratory: Yes: Mechanically Ventilated Gastrointestinal: Yes: Normal Bowel Sounds, Soft Edema: Yes Labs: CBC, BMP 11/28/17 05:30 11/28/17 05:30 INR, PTT INR 0.96 (0.82-1.09) 11/27/17 09:30 Problem List - Problems (1) CHF (congestive heart failure) Assessment/Plan: -Volume overload -dialysis -follow labs -echo -Cardio Code(s): I50.9 - HEART FAILURE, UNSPECIFIED (2) COPD (chronic obstructive pulmonary disease) Assessment/Plan: -on Nebs -Pulm on board Code(s): J44.9 - CHRONIC OBSTRUCTIVE PULMONARY DISEASE, UNSPECIFIED Qualifiers: COPD type: unspecified COPD Qualified Code(s): J44.9 - Chronic obstructive pulmonary disease, unspecified (3) ESRD (end stage renal disease) on dialysis Assessment/Plan: -dialysis per renal Code(s): N18.6 - END STAGE RENAL DISEASE; Z99.2 - DEPENDENCE ON RENAL DIALYSIS (4) Respiratory failure Assessment/Plan: -on vent -pulm on board Code(s): J96.90 - RESPIRATORY FAILURE, UNSP, UNSP W HYPOXIA OR HYPERCAPNIA Qualifiers: Chronicity: acute Respiratory failure complication: hypoxia and hypercapnia Qualified Code(s): J96.01 - Acute respiratory failure with hypoxia ; J96.02 - Acute respiratory failure with hypercapnia (5) Diabetes mellitus Assessment/Plan: -bgm/ss Code(s): E11.9 - TYPE 2 DIABETES MELLITUS WITHOUT COMPLICATIONS Qualifiers: Diabetes mellitus complication detail: with chronic kidney disease Qualified Code(s): E11.22 - Type 2 diabetes mellitus with diabetic chronic kidney disease
--- NOTE | 2017-11-28 13:19 | PN ---
Teaching Attending Note Name of Resident: Magalys Sears ATTENDING PHYSICIAN STATEMENT I saw and evaluated the patient. I reviewed the resident's note and discussed the case with the resident. I agree with the resident's findings and plan as documented. SUBJECTIVE: Pt seen and examined in the ICU. Placed on CPAP/PS trials, tolerated well, subsequently extubated during rounds. OBJECTIVE: Vital Signs Period Temp Pulse Resp BP Sys/Emmanuel Pulse Ox Last 24 Hr 97.2 F-97.7 F 54-87 18-19 122-177/61-87 92-97 Intake & Output 11/25/17 11/26/17 11/27/17 11/28/17 23:59 23:59 23:59 23:59 Intake Total 359.2 160 Output Total 55 20 Balance 304.2 140 Weight 89.981 kg 86.591 kg Gen: extubated Heart: RRR Lung: scattered rhonchi Abd: soft, nontender Ext: + edema CBC, BMP 11/28/17 05:30 11/28/17 05:30 Active Medications Acetaminophen (Tylenol Suppository -) 650 mg MO Q6H PRN PRN Reason: FEVER Albuterol Sulfate (Ventolin 0.083% Nebulizer Soln -) 1 amp NEB Q4H PRN PRN Reason: SHORT OF BREATH/WHEEZING Albuterol/Ipratropium (Duoneb -) 1 amp NEB RQID [facility] Last Admin: 11/28/17 12:28 Dose: Not Given Heparin Sodium (Porcine) (Heparin -) 5,000 unit SQ TID [facility] Last Admin: 11/28/17 06:31 Dose: 5,000 unit Hydralazine HCl (Apresoline Injection -) 10 mg IVPUSH Q6H PRN PRN Reason: HYPERTENSION Sodium Chloride (Normal Saline -) 250 mls @ 3,000 mls/hr IV PRN PRN PRN Reason: Hypotension during Dialysis Stop: 11/28/17 15:53 Pantoprazole Sodium (Protonix Iv) 40 mg IVPUSH DAILY [facility] Last Admin: 11/28/17 09:31 Dose: 40 mg ASSESSMENT AND PLAN: Acute Hypoxic Respiratory Failure Volume Overload ESRD on HD COPD HTN Hyperlipidemia h/o Polysubstance Abuse - pt extubated - HD per renal with ultrafiltration - inhaled bronchodilators - O2 to keep SpO2 >90% - DVT prophylaxis - can transfer to floor
--- NOTE | 2017-11-28 13:23 | PN ---
Physical Exam: SUBJECTIVE: Patient seen and examined. Off sedation and Extubated this morning. on 3L NC. Plan for possible Dialysis today. OBJECTIVE: Vital Signs Period Temp Pulse Resp BP Sys/Emmanuel Pulse Ox Last 24 Hr 97.2 F-97.7 F 54-87 18-19 122-177/61-87 92-97 GENERAL: awake, alert, in NAD. EYES: pupils minimially reactive to light. proptosis EARS, NOSE, THROAT: oropharynx clear without exudates. Moist mucous membranes. NECK: supple without lymphadenopathy, JVD,. LUNGS: basilar crackles HEART: Regular rate and rhythm, normal S1 and S2 without murmur, rub or gallop. ABDOMEN: obese, no grimacing to palpation. UPPER EXTREMITIES: 2+ pulses, R AVF fistula, +auscultation of bruit and positive palpation of thrill LOWER EXTREMITIES: 2+ pulses, 2+ Edema b/l Laboratory Results - last 24 hr 11/27/17 11/28/17 11/28/17 15:15 00:20 05:30 WBC 4.8 D RBC 3.12 L Hgb 9.8 L Hct 28.6 L MCV 91.5 MCH 31.2 MCHC 34.1 RDW 17.1 H Plt Count 221 MPV 8.5 Puncture Site Left brachial ABG pH 7.45 D ABG pCO2 at Pt Temp 40.8 D ABG pO2 at Pt Temp 139.0 H D ABG HCO3 28.0 H ABG O2 Sat (Measured) 99.3 H ABG O2 Content 13.9 L ABG Base Excess 4.2 H Kei Test No Result Required. Oxygen Flow Rate No Result Required. Vent Mode A/c Vent Rate 18 PEEP 5.0 Pressure Support Vent 450 Sodium Potassium Chloride Carbon Dioxide Anion Gap BUN Creatinine Creat Clearance w eGFR Random Glucose Calcium Phosphorus Magnesium Total Bilirubin AST ALT Alkaline Phosphatase Creatine Kinase Troponin I Total Protein Albumin Vitamin B12 Serum Folate TSH Opiates Screen Negative Methadone Screen Negative Barbiturate Screen Negative Phencyclidine Screen Negative Ur Amphetamines Screen Negative MDMA (Ecstasy) Screen Negative Benzodiazepines Screen Negative Cocaine Screen Negative U Marijuana (THC) Screen Negative 11/28/17 11/28/17 11/28/17 05:30 05:30 11:55 WBC RBC Hgb Hct MCV MCH MCHC RDW Plt Count MPV Puncture Site ABG pH ABG pCO2 at Pt Temp ABG pO2 at Pt Temp ABG HCO3 ABG O2 Sat (Measured) ABG O2 Content ABG Base Excess Kei Test Oxygen Flow Rate Vent Mode Vent Rate PEEP Pressure Support Vent Sodium 135 L Potassium 4.2 Chloride 99 Carbon Dioxide 29 Anion Gap 7 L BUN 33 H Creatinine 4.5 H Creat Clearance w eGFR 9.81 Random Glucose 82 Calcium 7.7 L Phosphorus 3.5 Magnesium 1.8 Total Bilirubin 0.3 AST 12 L ALT 18 Alkaline Phosphatase 102 Creatine Kinase 114 Troponin I 0.02 Total Protein 5.4 L Albumin 2.7 L Vitamin B12 425 Serum Folate 5 TSH 0.27 L Opiates Screen Methadone Screen Barbiturate Screen Phencyclidine Screen Ur Amphetamines Screen MDMA (Ecstasy) Screen Benzodiazepines Screen Cocaine Screen U Marijuana (THC) Screen Active Medications Generic Name Dose Route Start Last Admin Trade Name Freq PRN Reason Stop Dose Admin Acetaminophen 650 mg 11/27/17 15:29 Tylenol Suppository - MA Q6H PRN FEVER Albuterol Sulfate 1 amp 11/27/17 12:15 Ventolin 0.083% Nebulizer Soln - NEB Q4H PRN SHORT OF BREATH/WHEEZING Albuterol/Ipratropium 1 amp 11/27/17 16:00 11/28/17 12:28 Duoneb - NEB Not Given RQID [facility] Heparin Sodium (Porcine) 5,000 unit 11/27/17 14:00 11/28/17 06:31 Heparin - SQ 5,000 unit TID SH[facility] Administration Hydralazine HCl 10 mg 11/28/17 08:17 Apresoline Injection - IVPUSH Q6H PRN HYPERTENSION Sodium Chloride 250 mls @ 3,000 mls/hr 11/27/17 15:53 Normal Saline - IV 11/28/17 15:53 PRN PRN Hypotension during Dialysis Pantoprazole Sodium 40 mg 11/27/17 15:30 11/28/17 09:31 Protonix Iv IVPUSH 40 mg DAILY [facility] Administration ASSESSMENT/PLAN: Patient is a 67 yo F with a PMHx of ESRD (T,T,Sat), CHF, COPD, HTN, HLD, presented to the ED with SOB and was found to be in acute hypoxic respiratory failure secondary to Fluid overload from ESRD. #Neuro -intubated and sedated 11/27 -Now extubated 11/28 -Back at baseline #PULM -volume overloaded 2/2 ESRD -Now on NC -HD for volume removal -Duonebs QID -Albuterol PRN -strict I/o -daily weights #Nephro -ESRD -Nephro consulted: Dr. Cullen -Plan for dialysis today for volume removal. Last HD yesterday. -FU nephro reccs #CV -Hydralazine 10mg q6h PRN -monitor BP #FEN -no iv fluids -monitor lytes -renal diet #DVT -hep sq Transfer to Med-surge Visit type - Emergency Visit Emergency Visit: Yes ED Registration Date: 11/27/17 Care time: The patient presented to the Emergency Department on the above date and was hospitalized for further evaluation of their emergent condition. - New Patient This patient is new to me today: No - Critical Care Critical Care patient: Yes Total Critical Care Time (in minutes): 40 Critical Care Statement: The care of this patient involved high complexity decision making to prevent further life threatening deterioration of the patient 's condition and/or to evaluate & treat vital organ system(s) failure or risk of failure.
[2017-11-28] MEDS ORDERED: SODIUM CHLORIDE 250 ML IV PRN ×2 (13:28→16:49)
--- NOTE | 2017-11-28 13:28 | PN ---
Progress Note, Physician History of Present Illness: Pt seen and examined at bedside. She is now extubated. She is asking for food. She denied shortness of breath. - Current Medication List Current Medications: Active Medications Acetaminophen (Tylenol Suppository -) 650 mg AR Q6H PRN PRN Reason: FEVER Albuterol Sulfate (Ventolin 0.083% Nebulizer Soln -) 1 amp NEB Q4H PRN PRN Reason: SHORT OF BREATH/WHEEZING Albuterol/Ipratropium (Duoneb -) 1 amp NEB RQID [facility] Last Admin: 11/28/17 12:28 Dose: Not Given Heparin Sodium (Porcine) (Heparin -) 5,000 unit SQ TID [facility] Last Admin: 11/28/17 06:31 Dose: 5,000 unit Hydralazine HCl (Apresoline Injection -) 10 mg IVPUSH Q6H PRN PRN Reason: HYPERTENSION Sodium Chloride (Normal Saline -) 250 mls @ 3,000 mls/hr IV PRN PRN PRN Reason: Hypotension during Dialysis Stop: 11/28/17 15:53 Pantoprazole Sodium (Protonix Iv) 40 mg IVPUSH DAILY [facility] Last Admin: 11/28/17 09:31 Dose: 40 mg - Objective Vital Signs: Vital Signs Temperature 97.2 F L 11/28/17 02:00 Pulse Rate 86 11/28/17 12:00 Respiratory Rate 18 11/28/17 12:00 Blood Pressure 137/68 11/28/17 12:00 O2 Sat by Pulse Oximetry (%) 92 L 11/28/17 10:45 Constitutional: Yes: Calm Eyes: Yes: Conjunctiva Clear HENT: Yes: Atraumatic Neck: Yes: Supple Cardiovascular: Yes: S1, S2 Respiratory: Yes: On Nasal O2 Gastrointestinal: Yes: Soft Genitourinary: Yes: WNL Musculoskeletal: Yes: WNL Edema: Yes Edema: LLE: 1+, RLE: 1+ Neurological: Yes: Oriented Psychiatric: Yes: Oriented Labs: CBC, BMP 11/28/17 05:30 11/28/17 05:30 INR, PTT INR 0.96 (0.82-1.09) 11/27/17 09:30 Problem List - Problems (1) COPD (chronic obstructive pulmonary disease) Code(s): J44.9 - CHRONIC OBSTRUCTIVE PULMONARY DISEASE, UNSPECIFIED Qualifiers: COPD type: unspecified COPD Qualified Code(s): J44.9 - Chronic obstructive pulmonary disease, unspecified (2) ESRD (end stage renal disease) on dialysis Code(s): N18.6 - END STAGE RENAL DISEASE; Z99.2 - DEPENDENCE ON RENAL DIALYSIS (3) Respiratory failure Code(s): J96.90 - RESPIRATORY FAILURE, UNSP, UNSP W HYPOXIA OR HYPERCAPNIA Qualifiers: Chronicity: acute Respiratory failure complication: hypoxia and hypercapnia Qualified Code(s): J96.01 - Acute respiratory failure with hypoxia ; J96.02 - Acute respiratory failure with hypercapnia Assessment/Plan Current Medications Generic Name Dose Route Start Last Admin Trade Name Freq PRN Reason Stop Dose Admin Acetaminophen 650 mg 11/27/17 15:29 Tylenol Suppository - AR Q6H PRN FEVER Albuterol Sulfate 1 amp 11/27/17 12:15 Ventolin 0.083% Nebulizer Soln - NEB Q4H PRN SHORT OF BREATH/WHEEZING Albuterol/Ipratropium 1 amp 11/27/17 16:00 11/28/17 12:28 Duoneb - NEB Not Given RQID [facility] Heparin Sodium (Porcine) 5,000 unit 11/27/17 14:00 11/28/17 06:31 Heparin - SQ 5,000 unit TID SH[facility]KA Administration Hydralazine HCl 10 mg 11/28/17 08:17 Apresoline Injection - IVPUSH Q6H PRN HYPERTENSION Sodium Chloride 250 mls @ 3,000 mls/hr 11/27/17 15:53 Normal Saline - IV 11/28/17 15:53 PRN PRN Hypotension during Dialysis Pantoprazole Sodium 40 mg 11/27/17 15:30 11/28/17 09:31 Protonix Iv IVPUSH 40 mg DAILY [facility] Administration Impression 1. ESRD 2. fluid overload 3. acute resp failure requiring intubation 4. HTN 5. COPD 6. hx of multi drug use 7. HLD Plan - pt now extubated - she tolerated HD last night - HD tomorrow - discussed diet and fluid intake with pt - renal diet Dr Cullen
--- NOTE | 2017-11-28 16:02 | CON.CARD ---
Consult Consult Specialty:: Cardiology Referred by:: Dr. Huynh Reason for Consultation:: SOB - History of Present Illness Chief Complaint: SOB History of Present Illness: 67 year old woman h/o HTN, HLD, DMII, ESRD on HD, COPD on home O2, admitted with SOB, intubated for resp failure, currently extubated. Pt seen and examined today in nad. extubated sitting up at side of bed eating lunch, states that she wants to go home. denies current sob. denies any chest pain, palpitations, pnd, orthopnea, or le edema. 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 History of Recent Travel: No Home Medications - Allergies Allergies/Adverse Reactions: Allergies Allergy/AdvReac Type Severity Reaction Status Date / Time gabapentin Allergy Intermediate Swelling Verified 11/27/17 08:52 - Home Medications Home Medications: Ambulatory Orders Albuterol 0.083% Nebulizer Missy [Ventolin 0.083%] 1 neb NEB Q4H PRN 06/12/14 Hydralazine HCl 50 mg PO Q8H 06/12/14 Amlodipine Besylate 10 mg PO DAILY 10/30/16 Furosemide [Lasix -] 40 mg PO DAILY 10/30/16 Aspirin [ASA -] 1 tab PO DAILY 10/01/17 Trazodone HCl 1 tab PO HS 10/01/17 Oxycodone HCl 5 mg PO Q12H PRN MDD 2 10/02/17 Atorvastatin Ca [Lipitor] 20 mg PO HS 10/03/17 Duloxetine HCl 30 mg PO DAILY 10/03/17 Pantoprazole Sodium [Protonix -] 20 mg PO DAILY 10/03/17 Sevelamer Carbonate [Renvela] 800 mg PO TID 10/03/17 Family Disease History - Family Disease History Family History: Denies Review of Systems - Review of Systems Constitutional: denies: No Symptoms, Chills, Diaphoresis, Fever, Lethargy, Loss of Appetite, Malaise, Night Sweats, Unintentional Wgt. Loss, Weakness, Other Eyes: denies: No Symptoms, Blind Spots, Blurred Vision, Double Vision, Eye Pain , Floaters, Photophobia, Recent Change in Vision, Other HENT: denies: No Symptoms, Difficult Swallowing, Ear Discharge, Ear Pain, Epistaxis, Gingival Bleeding, Hearing Loss, Mouth Swelling, Nasal Congestion, Ocular Prosthesis, Throat Pain, Toothache, Ringing in Ears, Other Neck: denies: No Symptoms, Decreased ROM, Lumps, Pain on Movement, Stiffness, Swollen Glands, Tenderness, Other Cardiovascular: reports: Shortness of Breath. denies: No Symptoms, Chest Pain, Edema, Palpitations, Other Respiratory: reports: Exercise Intolerance, SOB, SOB on Exertion. denies: No Symptoms, Cough, Hemoptysis, Orthopnea, PND, Snoring, Wheezing, Other Gastrointestinal: denies: No Symptoms, Abdominal Pain, Bloating, Constipation, Diarrhea, Dysphagia, Indigestion, Melena, Nausea, Rectal Bleeding, Vomiting, Vomiting Blood, Other Genitourinary: denies: No Symptoms, Burning, Discharge, Dysuria, Flank Pain, Frequency, Hematuria, Incontinence, Lesions, Menses, Pain, Testicular Mass, Testicular Pain, Testicular Swelling, Urgency, Vaginal Bleeding, Other Breasts: denies: No Symptoms Reported, See HPI, Breast Implants, Discharge from Nipple, Lumps, Pain, Skin Changes, Other Musculoskeletal: denies: No Symptoms, Back Pain, Crepitus, Decreased ROM, Extremity Pain, Joint Pain, Joint Swelling, Muscle Pain, Muscle Cramps, Muscle Weakness, Other Integumentary: denies: No Symptoms, Blister, Bruising, Change in Color, Eczema, Erythema, Incision, Lesions, Lump, Pallor, Pruritis, Rash, Wound, Other Neurological: denies: No Symptoms, Change in LOC, Change in Speech, Confusion, Dizziness, Headache, Incoordination, Numbness, Parasthesia, Pre-Existing Deficit , Seizure, Syncope, Tremors, Unsteady Gait, Weakness, Other Endocrine: denies: No Symptoms, Excessive Sweating, Flushing, Increased Hunger, Increased Thirst, Intolerance to Cold, Intolerance to Heat, Unexplained Weight Gain, Unexplained Weight Loss, Other Hematology/Lymphatic: denies: No Symptoms, Easily Bruised, Excessive Bleeding, Swollen Glands, Other Psychiatric: denies: No Symptoms, Altered Sleep Pattern, Anxiety, Depression, Hallucinations, Panic, Paranoia, Suicidal, Other - Risk Factors Known Risk Factors: Yes: Hypercholesterolemia, Hypertension Vital Signs: Vital Signs Temperature 97.2 F L 11/28/17 02:00 Pulse Rate 72 11/28/17 14:00 Respiratory Rate 18 11/28/17 14:00 Blood Pressure 137/80 11/28/17 14:00 O2 Sat by Pulse Oximetry (%) 92 L 11/28/17 10:45 Constitutional: Yes: No Distress, Calm, Obese Eyes: Yes: Conjunctiva Clear, EOM Intact, PERRL HENT: Yes: Atraumatic, Normocephalic Neck: Yes: Supple, Trachea Midline Respiratory: Yes: Regular, Diminished. No: Rales, Rhonchi, SOB, Wheezes Gastrointestinal: Yes: Normal Bowel Sounds, Soft. No: Distention, Tenderness Cardiovascular: Yes: Regular Rate and Rhythm. No: Bradycardia, Tachycardia, Pulse Irregular, Gallop, Rub, Varicosities JVD: No Carotid Bruit: No PMI: Non-Displaced Heart Sounds: Yes: S1, S2. No: Split S2, S3, S4, Clicks, Gallop, Rub Murmur: Yes: Systolic Murmur, Grade 3. No: Diastolic Murmur Musculoskeletal: Yes: WNL Extremities: Yes: WNL Edema: Yes Edema: LLE: Trace, RLE: Trace Peripheral Pulses WNL: Yes Peripheral Pulses: 2+ Left Doralis Pedis, 2+ Right Dorsalis Pedis Neurological: Yes: Alert, Oriented Psychiatric: Yes: Alert, Oriented - Other Data Labs, Other Data: CBC, BMP 11/28/17 05:30 11/28/17 05:30 INR, PTT INR 0.96 (0.82-1.09) 11/27/17 09:30 Troponin, BNP 11/28/17 11:55 Troponin I 0.02 Troponin, BNP 11/28/17 11:55 Troponin I 0.02 ekg-nsr 80bpm, incomplete RBBB, T inversion I, aVL Echo: Report Reviewed Imaging - Results Chest X-ray: Report Reviewed, Image Reviewed EKG: Report Reviewed, Image Reviewed Other: Report Reviewed, Image Reviewed Assessment/Plan 67 year old woman h/o HTN, HLD, DMII, ESRD on HD, COPD on home O2, admitted with SOB, intubated for resp failure, currently extubated. Pt seen and examined today in nad. extubated sitting up at side of bed eating lunch, states that she wants to go home. denies current sob. denies any chest pain, palpitations, pnd, orthopnea, or le edema. SOB-multifactorial, AE COPD, acute on chronic diastolic CHF -intubated for resp failure now extubated, improved -currently not sig volume overloaded -Volume removal with HD as needed -ECHO 11/28/17-Normal LV systolic function, mod concentric LVH, mild to mod MR, impaired relaxation -no additional planned inpatient cardiac work up at this time. Please call with any additional questions.
[2017-11-28] MEDS ORDERED: ALBUTEROL SO4 0.083% IH SOL 2.5 MG/3 ML VIAL.NEB. NEB PRN (16:49)
[2017-11-28] MEDS ORDERED: ACETAMINOPHEN 650 MG SUPP.RECT PR PRN (16:49)
[2017-11-29] MEDS ORDERED: MELATONIN 5 MG TABLETS PO ONE (01:45)
[2017-11-29] MEDS: HEPARIN NA (PORCINE) 5,000 UNITS/ML 1ML VIAL SQ SCH ×2 (05:59→14:17)
[2017-11-29] MEDS: ALBUTEROL SO4 2.5/IPRATROPIUM 0.5 INH SOL 3 ML VIAL.NEB. NEB SCH ×3 (07:15→15:30)
[2017-11-29 07:39] LABS: BASO % 0.4 % (0-2.0); EOS % 3.4 % (0-4.5); HEMOGLOBIN 10.1 GM/dL (10.7-15.3); LYMPH % 12.3 % (8-40); MCH 30.7 pg (25.7-33.7); MCHC 32.6 g/dl (32.0-36.0); MEAN CELL VOLUME 94.2 fl (80-96); MEAN PLT VOLUME 8.8 fl (7.5-11.1); MONO % 9.1 % (3.8-10.2); NEUT % 74.8 % (42.8-82.8); PLATELET COUNT 236 K/MM3 (134-434); RBC 3.29 M/mm3 (3.60-5.2); RDW 17.4 % (11.6-15.6); WHITE BLOOD COUNT 6.3 K/mm3 (4.0-10.0)
[2017-11-29 08:06] LABS: ALBUMIN 3.2 g/dl (3.4-5.0); CALCIUM 7.7 mg/dL (8.5-10.1); CHLORIDE 97 mmol/L (98-107); POTASSIUM 4.2 mmol/L (3.5-5.1); SODIUM 136 mmol/L (136-145)
[2017-11-29 08:07] LABS: HBSAG SCREEN Negative (Negative); HEP B CORE AB, TOT Positive (Negative)
[2017-11-29 08:12] LABS: ALK PHOS 133 U/L (45-117); ANION GAP 10 (8-16); BILIRUBIN,TOTAL 0.3 mg/dL (0.2-1.0); BLOOD UREA NITROGEN 53 mg/dL (7-18); CO2 29 mmol/L (21-32); CREATININE 5.8 mg/dL (0.55-1.02); GLUCOSE,RANDOM 89 mg/dL (74-106); MAGNESIUM 1.8 mg/dL (1.8-2.4); SGOT/AST 12 U/L (15-37); SGPT/ALT 19 U/L (12-78); TOT PROT 6.4 g/dl (6.4-8.2)
[2017-11-29] MEDS ORDERED: PANTOPRAZOLE SODIUM 40 MG VIAL IVPUSH SCH (10:00)
--- NOTE | 2017-11-29 11:02 | PN ---
Progress Note (short form) - Note Progress Note: PULMONARY Seen at HD. States breathing is at baseline. Wants to go home. Last Vital Signs Temp Pulse Resp BP Pulse Ox 98.2 F 79 18 134/75 91 L 11/29/17 09:00 11/29/17 09:50 11/29/17 09:50 11/29/17 09:50 11/29/17 09:00 Gen: NAD at rest Heart: RRR Lung: decreased breath sounds at the bases Abd: soft, nontender Ext: + edema CBC, BMP 11/29/17 06:00 11/29/17 06:00 Active Medications Acetaminophen (Tylenol Suppository -) 650 mg UT Q6H PRN PRN Reason: FEVER Albuterol Sulfate (Ventolin 0.083% Nebulizer Soln -) 1 amp NEB Q4H PRN PRN Reason: SHORT OF BREATH/WHEEZING Albuterol/Ipratropium (Duoneb -) 1 amp NEB RQID [facility] Last Admin: 11/29/17 11:00 Dose: Not Given Heparin Sodium (Porcine) (Heparin -) 5,000 unit SQ TID [facility] Last Admin: 11/29/17 05:59 Dose: 5,000 unit Hydralazine HCl (Apresoline Injection -) 10 mg IVPUSH Q6H PRN PRN Reason: HYPERTENSION Sodium Chloride (Normal Saline -) 250 mls @ 3,000 mls/hr IV PRN PRN PRN Reason: Hypotension during Dialysis Stop: 11/29/17 13:28 Sodium Chloride (Normal Saline -) 250 mls @ 3,000 mls/hr IV PRN PRN PRN Reason: Hypotension during Dialysis Pantoprazole Sodium (Protonix Iv) 40 mg IVPUSH DAILY [facility] A/P s/p Acute Hypoxic Respiratory Failure Volume Overload ESRD on HD COPD HTN Hyperlipidemia h/o Polysubstance Abuse - HD per renal with ultrafiltration - inhaled bronchodilators - O2 to keep SpO2 >90% - DVT prophylaxis - can d/c home from pulmonary standpoint
--- NOTE | 2017-11-29 15:13 | PN ---
Progress Note, Physician History of Present Illness: Pt seen and examined at bedside. She tolerated HD today. She is insisting on going home. She desaturates without oxygen. - Current Medication List Current Medications: Active Medications Acetaminophen (Tylenol Suppository -) 650 mg DC Q6H PRN PRN Reason: FEVER Albuterol Sulfate (Ventolin 0.083% Nebulizer Soln -) 1 amp NEB Q4H PRN PRN Reason: SHORT OF BREATH/WHEEZING Albuterol/Ipratropium (Duoneb -) 1 amp NEB RQID [facility] Last Admin: 11/29/17 11:00 Dose: Not Given Heparin Sodium (Porcine) (Heparin -) 5,000 unit SQ TID [facility] Last Admin: 11/29/17 14:17 Dose: Not Given Hydralazine HCl (Apresoline Injection -) 10 mg IVPUSH Q6H PRN PRN Reason: HYPERTENSION Sodium Chloride (Normal Saline -) 250 mls @ 3,000 mls/hr IV PRN PRN PRN Reason: Hypotension during Dialysis Stop: 11/29/17 13:28 Sodium Chloride (Normal Saline -) 250 mls @ 3,000 mls/hr IV PRN PRN PRN Reason: Hypotension during Dialysis Pantoprazole Sodium (Protonix Iv) 40 mg IVPUSH DAILY [facility] Last Admin: 11/29/17 14:17 Dose: Not Given - Objective Vital Signs: Vital Signs Temperature 98.8 F 11/29/17 14:59 Pulse Rate 70 11/29/17 14:59 Respiratory Rate 20 11/29/17 14:59 Blood Pressure 143/66 11/29/17 14:59 O2 Sat by Pulse Oximetry (%) 91 L 11/29/17 09:00 Constitutional: Yes: Anxious Eyes: Yes: Conjunctiva Clear HENT: Yes: Atraumatic Cardiovascular: Yes: S1, S2 Respiratory: Yes: On Nasal O2, Rhonchi Gastrointestinal: Yes: Soft Genitourinary: Yes: WNL Musculoskeletal: Yes: WNL Edema: Yes Edema: LLE: 1+, RLE: 1+ Neurological: Yes: Oriented Psychiatric: Yes: Oriented Labs: CBC, BMP 11/29/17 06:00 11/29/17 06:00 INR, PTT INR 0.96 (0.82-1.09) 11/27/17 09:30 Problem List - Problems (1) COPD (chronic obstructive pulmonary disease) Code(s): J44.9 - CHRONIC OBSTRUCTIVE PULMONARY DISEASE, UNSPECIFIED Qualifiers: COPD type: unspecified COPD Qualified Code(s): J44.9 - Chronic obstructive pulmonary disease, unspecified (2) ESRD (end stage renal disease) on dialysis Code(s): N18.6 - END STAGE RENAL DISEASE; Z99.2 - DEPENDENCE ON RENAL DIALYSIS (3) Respiratory failure Code(s): J96.90 - RESPIRATORY FAILURE, UNSP, UNSP W HYPOXIA OR HYPERCAPNIA Qualifiers: Chronicity: acute Respiratory failure complication: hypoxia and hypercapnia Qualified Code(s): J96.01 - Acute respiratory failure with hypoxia ; J96.02 - Acute respiratory failure with hypercapnia Assessment/Plan Current Medications Generic Name Dose Route Start Last Admin Trade Name Freq PRN Reason Stop Dose Admin Acetaminophen 650 mg 11/28/17 16:49 Tylenol Suppository - DC Q6H PRN FEVER Albuterol Sulfate 1 amp 11/28/17 16:49 Ventolin 0.083% Nebulizer Soln - NEB Q4H PRN SHORT OF BREATH/WHEEZING Albuterol/Ipratropium 1 amp 11/28/17 20:00 11/29/17 11:00 Duoneb - NEB Not Given RQID [facility] Heparin Sodium (Porcine) 5,000 unit 11/28/17 22:00 11/29/17 14:17 Heparin - SQ Not Given TID [facility] Hydralazine HCl 10 mg 11/28/17 16:49 Apresoline Injection - IVPUSH Q6H PRN HYPERTENSION Sodium Chloride 250 mls @ 3,000 mls/hr 11/28/17 13:28 Normal Saline - IV 11/29/17 13:28 PRN PRN Hypotension during Dialysis Sodium Chloride 250 mls @ 3,000 mls/hr 11/28/17 16:49 Normal Saline - IV PRN PRN Hypotension during Dialysis Pantoprazole Sodium 40 mg 11/29/17 10:00 11/29/17 14:17 Protonix Iv IVPUSH Not Given DAILY [facility] Impression 1. ESRD 2. fluid overload 3. acute resp failure requiring intubation 4. HTN 5. COPD 6. hx of multi drug use 7. HLD Plan - pt tolerated HD today - discussed fluid intake with pt and went over restrictions again - monitor pulse ox - monitor bp - will need close follow up - renal diet Dr Cullen
--- NOTE | 2017-11-29 15:13 | PN ---
Progress Note, Physician Chief Complaint: Fluid overload - Current Medication List Current Medications: Active Medications Acetaminophen (Tylenol Suppository -) 650 mg OR Q6H PRN PRN Reason: FEVER Albuterol Sulfate (Ventolin 0.083% Nebulizer Soln -) 1 amp NEB Q4H PRN PRN Reason: SHORT OF BREATH/WHEEZING Albuterol/Ipratropium (Duoneb -) 1 amp NEB RQID [facility] Last Admin: 11/29/17 11:00 Dose: Not Given Heparin Sodium (Porcine) (Heparin -) 5,000 unit SQ TID [facility] Last Admin: 11/29/17 14:17 Dose: Not Given Hydralazine HCl (Apresoline Injection -) 10 mg IVPUSH Q6H PRN PRN Reason: HYPERTENSION Sodium Chloride (Normal Saline -) 250 mls @ 3,000 mls/hr IV PRN PRN PRN Reason: Hypotension during Dialysis Stop: 11/29/17 13:28 Sodium Chloride (Normal Saline -) 250 mls @ 3,000 mls/hr IV PRN PRN PRN Reason: Hypotension during Dialysis Pantoprazole Sodium (Protonix Iv) 40 mg IVPUSH DAILY [facility] Last Admin: 11/29/17 14:17 Dose: Not Given - Objective Vital Signs: Vital Signs Temperature 98.8 F 11/29/17 14:59 Pulse Rate 70 11/29/17 14:59 Respiratory Rate 20 11/29/17 14:59 Blood Pressure 143/66 11/29/17 14:59 O2 Sat by Pulse Oximetry (%) 91 L 11/29/17 09:00 Constitutional: Yes: Well Nourished, No Distress, Calm Cardiovascular: Yes: Regular Rate and Rhythm Respiratory: Yes: Regular Labs: CBC, BMP 11/29/17 06:00 11/29/17 06:00 INR, PTT INR 0.96 (0.82-1.09) 11/27/17 09:30 Problem List - Problems (1) CHF (congestive heart failure) Assessment/Plan: -Fluid elimination via dialysis -Seen by nephrology and cardiology Code(s): I50.9 - HEART FAILURE, UNSPECIFIED (2) COPD (chronic obstructive pulmonary disease) Assessment/Plan: -bronchodilators -Nasal O2 -Pulmonary consult Code(s): J44.9 - CHRONIC OBSTRUCTIVE PULMONARY DISEASE, UNSPECIFIED Qualifiers: COPD type: unspecified COPD Qualified Code(s): J44.9 - Chronic obstructive pulmonary disease, unspecified (3) ESRD (end stage renal disease) on dialysis Assessment/Plan: -at dialysis -[facility] schedule Code(s): N18.6 - END STAGE RENAL DISEASE; Z99.2 - DEPENDENCE ON RENAL DIALYSIS Assessment/Plan see problem list d/c after dialysis on Oxygen with [facility]
[2017-11-29 18:33] VITALS: BP 142/66; PULSE 72; TEMP 99.2
--- NOTE | 2017-11-29 22:24 | DS ---
Physical Examination Vital Signs: Vital Signs Temperature 99.2 F 11/29/17 18:00 Pulse Rate 72 11/29/17 18:00 Respiratory Rate 20 11/29/17 18:00 Blood Pressure 142/66 11/29/17 18:00 O2 Sat by Pulse Oximetry (%) 91 L 11/29/17 15:31 Constitutional: Yes: Well Nourished, No Distress, Calm Cardiovascular: Yes: Regular Rate and Rhythm Respiratory: Yes: Regular Gastrointestinal: Yes: Normal Bowel Sounds, Soft Neurological: Yes: Alert, Oriented Psychiatric: Yes: Alert, Oriented Labs: CBC, BMP 11/29/17 06:00 11/29/17 06:00 Discharge Summary Reason For Visit: RESP FAILURE,ESRF,COPD Hospital Course: The patient is a 67 year old female with a history of HTN, HLD, COPD on home O2 , DM, ESRD on dialysis ([facility], [facility], [facility]) who presents for evaluation of SOB. The patient reports that she received her normal dialysis on Sunday, however began feeling increasingly SOB yesterday evening worse with lying flat prompting her presentation to the ED for further evaluation. She notes that she feels extremely tired and SOB, but otherwise denies fevers, chills, chest pain, nausea, vomiting, abdominal pain or changes with urination or bowel movements. Condition: Stable - Instructions Diet, Activity, Other Instructions: Follow up with PCP outpatient within 2 weeks Dialysis TThSa Disposition: VNS/HOME HEALTH CARE - Home Medications Comprehensive Discharge Medication List: Ambulatory Orders Albuterol 0.083% Nebulizer Missy [Ventolin 0.083% Nebulizer Soln -] 1 neb NEB Q4H PRN 06/12/14 Hydralazine HCl 50 mg PO Q8H 06/12/14 Amlodipine Besylate 10 mg PO DAILY 10/30/16 Furosemide [Lasix -] 40 mg PO DAILY 10/30/16 Aspirin [ASA -] 1 tab PO DAILY 10/01/17 Trazodone HCl 1 tab PO HS 10/01/17 Oxycodone HCl 5 mg PO Q12H PRN MDD 2 10/02/17 Atorvastatin Ca [Lipitor] 20 mg PO HS 10/03/17 Duloxetine HCl 30 mg PO DAILY 10/03/17 Pantoprazole Sodium [Protonix -] 20 mg PO DAILY 10/03/17 Sevelamer Carbonate [Renvela -] 800 mg PO TID 10/03/17 Albuterol 2.5/Ipratropium 0.5 [Duoneb -] 1 amp NEB RQID #120 amp 11/29/17
== END 2017-11-29 19:18 | disposition home health service (06) | DRG 208 ==
LOC: JER 08:39 → JERBED 10:09 → JICU 11:32 → J7W 11-28 20:48
PROVIDERS: ADMIT Family Medicine; ATTEND Family Medicine
PROC: 5A1945Z Respiratory Ventilation, 24-96 Consecutive Hours (ICD-10-PCS; principal; 2017-11-27)
PROC: 0BH17EZ Insertion of Endotracheal Airway into Trachea, Via Natural or Artificial Opening (ICD-10-PCS; 2017-11-27)
PROC: 5A1D70Z Performance of Urinary Filtration, Intermittent, Less than 6 Hours Per Day (ICD-10-PCS; 2017-11-27)
DX: J96.01 Acute respiratory failure with hypoxia (principal); N18.6 End stage renal disease; I50.33 Acute on chronic diastolic (congestive) heart failure; J44.1 Chronic obstructive pulmonary disease with (acute) exacerbation; I13.2 Hypertensive heart and chronic kidney disease with heart failure and with stage 5 chronic kidney disease, or end stage renal disease; J96.02 Acute respiratory failure with hypercapnia; Z99.81 Dependence on supplemental oxygen; E11.22 Type 2 diabetes mellitus with diabetic chronic kidney disease; Z99.2 Dependence on renal dialysis; F17.210 Nicotine dependence, cigarettes, uncomplicated; I45.10 Unspecified right bundle-branch block; E78.5 Hyperlipidemia, unspecified; E66.9 Obesity, unspecified; Z68.31 Body mass index [BMI] 31.0-31.9, adult
CPT/HCPCS: 36415; 36600; 71045-TC-FY; 80053; 80307; 81003; 81015; 82375; 82550; 82553; 82607; 82746; 82803; 82962; 83050; 83605; 83735; 83880; 84100; 84439; 84443; 84481; 84484; 85025; 85027; 85610; 85730; 86704; 86706; 86708; 87040; 87086; 87186; 87340; 93005; 93010; 93306-TC; 94640; 94761; 99285-25; J1644; J7620